=== PATIENT | female | born 1980 | race Caucasian/White ===

== ENCOUNTER 2020-07-02 15:31 | Outpatient (REF) | payer MEDICAID, SELFPAY ==
--- NOTE | ~2020-07-02 | XR_ITS ---
EXAMINATION: XR KNEE, RIGHT CLINICAL INFORMATION: Right knee pain. COMPARISON: None TECHNIQUE: Four views of the right knee. FINDINGS: Mild lateral patellofemoral joint space narrowing is seen. There is no acute fracture, dislocation or joint effusion. The soft tissues are unremarkable. XR/XR knee RT 4V IMPRESSION: Mild lateral patellofemoral degenerative narrowing without acute abnormality.
== END 2020-07-02 15:32 | disposition home or self-care (01) ==
LOC: HO.XRAY 15:31
PROVIDERS: PCP Family Medicine; Visit Provider Family Medicine
DX: M25.561 Pain in right knee (principal)
CPT/HCPCS: 73564

== ENCOUNTER 2020-10-15 09:52 | Outpatient (REF) | payer MEDICAID, SELFPAY ==
[2020-10-15 11:02] LABS: MANUAL DIFF FLAG NO
[2020-10-15 11:17] LABS: Basophils Percent Auto 0.2 % (0-2); Eosinophils Absolute Auto 0.2 X10*3/uL (0.0-0.4); Eosinophils Percent Auto 1.7 % (0-4); Hematocrit 40.1 % (37-47); Imm Gran Abs Auto 0.03 X10*3/uL (0.00-0.03); Imm Gran Pct Auto 0.3 % (0.0-0.4); Lymphocytes Absolute Auto 3.1 X10*3/uL (1.2-4.9); Lymphocytes Percent Auto 34.3 % (20-40); Mean Corpuscular HGB Conc 32.4 g/dl (31.0-35.0); Mean Corpuscular Hemoglobin 27.4 pg (27.0-33.0); Mean Corpuscular Volume 84.6 fL (80-98); Mean Platelet Volume 9.8 fL (9.4-12.3); Monocytes Absolute Auto 0.5 X10*3/uL (0.1-1.2); Monocytes Percent Auto 5.7 % (2-11); Neutrophils Absolute Auto 5.3 X10*3/uL (2.0-8.3); Neutrophils Percent Auto 57.8 % (45-73); Platelet Count 424 X10*3/uL (160-400); Red Blood Count 4.74 X10*6/uL (4.20-5.50); Red Cell Distribution Width 13.7 % (11.0-16.0); White Blood Count 9.2 X10*3/uL (4.8-10.8)
[2020-10-15 11:25] LABS: Estimated Average Glucose 108 mg/dL; Hemoglobin A1c % 5.4 %
[2020-10-15 11:27] LABS: Alanine Aminotransferase 13 U/L (0-31); Albumin Level 4.5 g/dL (3.5-5.0); Alkaline Phosphatase 111 U/L (39-117); Anion Gap 11 (12-20); Aspartate Amino Transferase 18 U/L (5-31); Bilirubin Direct 0.4 mg/dL (0.0-0.5); Blood Urea Nitrogen 11 mg/dL (9-16); Calcium 9.5 mg/dL (8.4-10.2); Carbon Dioxide 23 mmol/L (22-29); Chloride 108 mmol/L (96-108); Cholesterol 168 mg/dL; Estimated Glomerular Filt Rate > 60; Glucose Random 104 mg/dL (60-115); HDL Cholesterol 37 mg/dL; LDL Cholesterol Calculated 116 mg/dl; Potassium 4.3 mmol/L (3.3-5.1); Sodium 138 mmol/L (135-145); Total Protein 8.2 g/dL (6.5-8.0); Triglycerides 75 mg/dL
[2020-10-15 11:41] LABS: Creatinine Urine 214.05 mg/dL; Microalbum/Creatinine Ratio Ur 18.6 ug/mg cr
[2020-10-15 11:50] LABS: Thyroid Stimulating Hormone 0.77 uIU/mL (0.32-4.0); Vitamin D 25-OH Total 20.4 ng/mL (>30)
== END 2020-10-15 09:53 | disposition home or self-care (01) ==
LOC: HO.LAB 09:52
PROVIDERS: PCP Family Medicine; Visit Provider Family Medicine
DX: I10 Essential (primary) hypertension (principal)
CPT/HCPCS: 36415; 80048; 80061; 80076; 82043; 82306; 83036; 84439; 84443; 85025

== ENCOUNTER 2021-06-21 08:40 | Outpatient (REF) | payer MEDICAID, SELFPAY ==
--- NOTE | ~2021-06-21 | MM_ITS ---
EXAMINATION: MM SCREENING DIGITAL BREAST TOMOSYNTHESIS, BILATERAL CLINICAL INFORMATION: Screening. Asymptomatic. No prior breast imaging. Age 40. No known family history breast cancer. The lifetime risk of breast cancer based on the Tyrer-Cuzick Model is 13%. COMPARISON: None (current study represents initial baseline exam). TECHNIQUE: Digital breast tomosynthesis is performed in both the craniocaudal and mediolateral oblique views along with computer-aided detection (CAD). Synthesized 2D images are generated from the tomosynthesis. Additional bilateral MLO views are provided. FINDINGS: There are scattered areas of fibroglandular density (ACR BI-RADS breast composition Category b). There is no significant mass or architectural abnormality. There are bilateral dermal calcifications versus deodorant artifact overlying the bilateral upper axilla, localized to the skin on tomography. The right breast shows no abnormal calcifications. The left breast has some loosely grouped calcifications anterior medial breast on CC view, lesser in number on MLO view. Patient will be recalled for additional magnification views on the left. MM/MM tomosynthesis screening BI IMPRESSION: 1. Left: Loosely grouped calcifications anterior medial breast. 2. Right: No mammographic evidence of malignancy. ASSESSMENT: BI-RADS 0: Incomplete - Need Additional Imaging Evaluation RECOMMENDATION: 1. Additional views of the left breast (magnification CC, magnification LM). 2. Radiology department staff will contact the patient for additional imaging. This patient's information was entered into a reminder system with a target due date for their next mammogram.
== END 2021-06-21 08:41 | disposition home or self-care (01) ==
LOC: HO.MAMMO 08:40
PROVIDERS: PCP Family Medicine; Visit Provider Family Medicine
DX: Z12.31 Encounter for screening mammogram for malignant neoplasm of breast (principal)
CPT/HCPCS: 77063; 77067

== ENCOUNTER 2021-08-12 10:51 | Outpatient (REF) | payer MEDICAID, SELFPAY ==
--- NOTE | ~2021-08-12 | MM_ITS ---
EXAMINATION: MM DIAGNOSTIC DIGITAL MAMMOGRAPHY, LEFT CLINICAL INFORMATION: Recall from baseline screening for calcifications anterior medial left breast. COMPARISON: Mammography: 06/21/2021 (baseline, BI-RADS 0). TECHNIQUE: Digital mammography is performed in the following views: Left magnification CC, left magnification LM x2. FINDINGS: There are scattered areas of fibroglandular density (ACR BI-RADS breast composition Category b). The additional views demonstrate grouped heterogeneous calcifications anterior medial periareolar left breast. The calcifications vary in size. There are 2 groups on the MLO view, 0.6 cm apart. Chronicity is uncertain. There are no grouped calcifications seen on the contralateral right breast. Results are discussed with the patient at time of visit. Stereotactic sampling is recommended. If patient declines sampling, then certainly short interval diagnostic left mammography to include magnification views in 6 months should be obtained. MM/MM added views LT IMPRESSION: Grouped heterogeneous calcifications periareolar medial left breast, initially noted at baseline exam. Chronicity unknown. ASSESSMENT: BI-RADS 4: Suspicious RECOMMENDATION: Stereotactic sampling of the left breast calcifications is suggested. (If patient declines tissue sampling, then short interval follow-up left mammography in 6 months should be performed). [facility]igator to call PCP. This patient's information was entered into a reminder system with a target due date for their next mammogram.
== END 2021-08-12 10:52 | disposition home or self-care (01) ==
LOC: HO.MAMMO 10:51
PROVIDERS: Visit Provider Family Medicine
DX: R92.1 Mammographic calcification found on diagnostic imaging of breast (principal)
CPT/HCPCS: 77065

== ENCOUNTER → 2021-09-23 15:30 | Outpatient (BNVA) | payer MEDICAID, SELFPAY | PROVIDERS: PCP Family Medicine; Visit Provider Surgery | DX: R92.8 Other abnormal and inconclusive findings on diagnostic imaging of breast (principal) | CPT/HCPCS: 99202 ==

== ENCOUNTER 2021-10-13 09:44 | Outpatient (REF) | payer MEDICAID, SELFPAY ==
--- NOTE | ~2021-10-13 | MM_ITS ---
EXAMINATION: STEREOTACTIC TOMOSYNTHESIS-GUIDED VACUUM-ASSISTED BREAST BIOPSY, LEFT SPECIMEN RADIOGRAPH, LEFT POST PROCEDURE DIGITAL MAMMOGRAM, LEFT CLINICAL INFORMATION: Medial periareolar calcifications left breast noted at baseline exam. Age 41. TC score 13%. No known family history breast cancer. COMPARISON: Mammography 08/12/2021, 06/21/2021 (baseline, BI-RADS 0). TECHNIQUE/PROCEDURE: Procedure discussed with patient and her mother. Informed consent was obtained from the patient after discussion of the benefits, risks, and alternatives to biopsy today. Patient appeared to understand. Gave opportunity for questions. Patient signed consent form. BIOPSY TABLE: [employer] Biopsy System. LESION: Calcifications medial periareolar breast. LOCAL ANESTHESIA: 10 mL carbonated 1% lidocaine; 10 mL 1% lidocaine with epinephrine. DERMATOTOMY: Single skin dilcia dermatotomy performed. NEEDLE: [employer] 9-gauge vacuum assisted core biopsy device. APPROACH: medial lateral. TARGETING: Combination of digital breast tomosynthesis and stereotactic digital mammography used for targeting. CORES: 8. CLIP: [employer] T-shaped marker. SPECIMEN RADIOGRAPH: Specimen radiograph is taken in separate room using digital mammography. The index calcifications are in the excised cores. There are at least 15 calcifications in the cores. POST PROCEDURE UNILATERAL DIGITAL MAMMOGRAM: The post biopsy mammogram is performed in separate room using separate digital mammography equipment from the biopsy procedure. CC and LM views are obtained. There are scattered areas of fibroglandular density (breast composition category: b). The clip marker is in position. The calcifications are markedly decreased at the biopsy site. No gross hematoma. The patient tolerated the procedure well. No immediate complications. Home instructions reviewed with the patient and her mother. Final pathology results are pending. MM/MM stereotactic biopsy LT IMPRESSION: 1. Digital tomosynthesis-guided core biopsy left breast with clip placement. 2. Specimen radiograph taken and post procedure mammogram. There is satisfactory positioning of the biopsy clip. 3. Final pathology results pending. An addendum report will be issued.
[2021-10-13] MEDS: Lidocaine HCl 1 % 20 ML VIAL 10 ML SUBCUT (16:30)
[2021-10-13] MEDS: Sodium Bicarbonate 8.4% 50 MEQ/50 ML VIAL SUBCUT (16:32)
== END 2021-10-13 09:45 | disposition home or self-care (01) ==
LOC: HO.MAMMO 09:44
PROVIDERS: PCP Family Medicine; Visit Provider Surgery
DX: R92.8 Other abnormal and inconclusive findings on diagnostic imaging of breast (principal)
CPT/HCPCS: 19081; 88305; 88342; 88360; A4648

== ENCOUNTER → 2021-10-21 15:30 | Outpatient (BNVA) | payer MEDICAID, SELFPAY | PROVIDERS: PCP Family Medicine; Visit Provider Surgery | DX: C50.912 Malignant neoplasm of unspecified site of left female breast (principal); Z17.0 Estrogen receptor positive status [ER+] | CPT/HCPCS: 99212 ==

== ENCOUNTER 2021-10-24 18:53 | Emergency (ER) | payer MEDICAID, SELFPAY ==
--- NOTE | ~2021-10-24 | XR_ITS ---
EXAMINATION: XR CHEST CLINICAL INFORMATION: Cough COMPARISON: None TECHNIQUE: Frontal view of the chest was obtained. FINDINGS: The lungs are clear. No airspace consolidation, pleural effusion, or pneumothorax. The cardiomediastinal silhouette is within normal limits. No acute osseous injury. XR/XR chest 1V IMPRESSION: No acute pulmonary process identified.
[2021-10-24 19:05] VITALS: BP 147/90; PULSE 123; RESP 18; TEMP 37.9; O2SAT 98; BMI 31.8
[2021-10-24] MEDS: Acetaminophen 325 MG TABLET 650 MG PO (19:28)
[2021-10-24 19:53] LABS: COVID-19 Test Negative (Negative); IDNOW Serial# 55D5AD1C
[2021-10-24 19:58] LABS: Lactic Acid 0.9 mmol/L (0.5-2.0)
[2021-10-24 19:59] LABS: Anion Gap 14 (12-20); Blood Urea Nitrogen 11 mg/dL (9-16); Calcium 8.9 mg/dL (8.4-10.2); Carbon Dioxide 20 mmol/L (22-29); Chloride 104 mmol/L (96-108); Creatinine Clr Calc Pharmacy 97.5; Estimated Glomerular Filt Rate > 60; Glucose Random 117 mg/dL (60-115); Potassium 3.8 mmol/L (3.3-5.1); Sodium 134 mmol/L (135-145)
[2021-10-24 20:07] LABS: IDNOW Serial# 9DB6401D
[2021-10-24 20:08] LABS: Influenza A Negative (Negative); Influenza B2 Negative (Negative)
--- NOTE | 2021-10-24 21:41 | ED_ITS ---
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 ) Onset (ago): day(s) (1) Context: other (denies any known exposure and any other symptoms other than fever) Exacerbating factors: nothing Relieving factors: acetaminophen and ibuprofen Associated symptoms: denies other symptoms Treatments prior to arrival fever: none Related Data Home Medications Medication Instructions Recorded Confirmed cholecalciferol (vitamin D3) 50 50 mcg PO DAILY 09/23/21 10/22/21 mcg (2,000 unit) capsule fluticasone propionate 50 2 spray intranasal DAILY 09/23/21 10/22/21 mcg/actuation nasal spray,suspension lisinopril 5 mg tablet 5 mg PO DAILY 09/23/21 10/22/21 loratadine 10 mg tablet 10 mg PO DAILY 09/23/21 10/22/21 Previous Rx's Medication Instructions Recorded amoxicillin 500 mg tablet 500 mg PO BID 10 days #20 tabs 10/24/21 fluconazole 150 mg tablet 150 mg PO Q3D 2 doses #2 tabs 10/24/21 (Diflucan) Allergies Allergy/AdvReac Type Severity Reaction Status Date / Time No Known Allergies Allergy Verified 10/21/21 15:41 Review of Systems Review of Systems: Constitutional : No Weight loss, pos Fever, No Chills, No Fatigue, No Malaise ENT/Mouth : No sore throat, No Rhinorrhea Eyes: No Eye Pain, No Swelling, No Redness Cardiovascular : No Chest Pain, No SOB, No Dyspnea on Exertion, No Orthopnea, No Edema, No Palpitations Respiratory : No Cough, No Sputum, No Wheezing Gastrointestinal : No Nausea, No Vomiting, No Diarrhea, No Constipation, No abdominal Pain, No Hematochezia, No Melena Genitourinary : No Dysuria, No Urinary Frequency, No Hematuria, Musculoskeletal : No joint pain, No Myalgias, No Joint Swelling Skin : No Skin Lesions, No rash Neuro : No Weakness, No Numbness, No Dizziness, No Headache Psych : No Anxiety/Panic, No Depression Heme/Lymph: No Bruising, No Bleeding,No Lymphadenopathy, no insect bites Endocrine : No Polyuria, No Polydipsia All other systems reviewed and are negative [facility] Past Medical History Attestation statement: The following information was validated with the patient. 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 Oriented X3. No acute distress. Eyes: Pupils equal, round and reactive to light. ENT: Pharynx mild erythema with white patches noted on both tonsils. Neck: Normal inspection. Neck supple. no meningeal signs CVS: Normal heart rate and rhythm. Pulses normal. Chest: L breast biopsy site c/d/i no signs of infection Respiratory: No respiratory distress. Breath sounds normal. Abdomen: Soft and nontender. Skin: Skin warm and dry. Normal skin color. Normal skin turgor. Extremities: No lower extremity edema. No calf ttp Neuro: Oriented X 3. No motor deficit. No sensory deficit. MDM - Fever MDM Narrative Medical decision making narrative: 41 yo female with no recent abnormal mammogram L breast showing ductal carcinoma in situ plan for surgery 11/05 comes with just fever x 1 day she denies hx of t ravel, no sick contacts, UTD on vaccines, denies pain/rashes, URI symptoms, /GI symptoms. At this time will obtain COVID/flu, strep given the appearance of her throat with erythema and white patches - highest on differential, CXR, UA, basic labs, dispo per results and findings. Lab Data Result diagrams: 10/24/21 19:21 10/24/21 19:21 Labs: Lab Results 10/24/21 10/24/21 10/24/21 Range/Units 19:21 19:21 19:21 Sodium 134 L (135-145) mmol/L Potassium 3.8 (3.3-5.1) mmol/L Chloride 104 (96-108) mmol/L Carbon Dioxide 20 L (22-29) mmol/L Anion Gap 14 (12-20) BUN 11 (9-16) mg/dL Creatinine 0.76 (0.5-1.4) mg/dL Estim Creat Clear Calc 97.5 Estimated GFR > 60 Random Glucose 117 H (60-115) mg/dL Lactic Acid (0.5-2.0) mmol/L Calcium 8.9 D (8.4-10.2) mg/dL Total Bilirubin 0.7 (0.0-1.0) mg/dL Direct Bilirubin 0.3 (0.0-0.5) mg/dL AST 34 H D (5-31) U/L ALT 24 (0-31) U/L Alkaline Phosphatase 117 (39-117) U/L Total Protein 8.3 H (6.5-8.0) g/dL Albumin 4.3 (3.5-5.0) g/dL COVID-19 (MARBIN) Negative (Negative) COVID-19 Clin Com See Note Influenza Type A (CHRISTY) Negative (Negative) Influenza Type B (CHRISTY) Negative (Negative) Influenza A & B Note See Note S. pyogenes GrpA CHRISTY (Negative) 10/24/21 10/24/21 Range/Units 19:29 21:41 Sodium (135-145) mmol/L Potassium (3.3-5.1) mmol/L Chloride (96-108) mmol/L Carbon Dioxide (22-29) mmol/L Anion Gap (12-20) BUN (9-16) mg/dL Creatinine (0.5-1.4) mg/dL Estim Creat Clear Calc Estimated GFR Random Glucose (60-115) mg/dL Lactic Acid 0.9 (0.5-2.0) mmol/L Calcium (8.4-10.2) mg/dL Total Bilirubin (0.0-1.0) mg/dL Direct Bilirubin (0.0-0.5) mg/dL AST (5-31) U/L ALT (0-31) U/L Alkaline Phosphatase (39-117) U/L Total Protein (6.5-8.0) g/dL Albumin (3.5-5.0) g/dL COVID-19 (MARBIN) (Negative) COVID-19 Clin Com Influenza Type A (CHRISTY) (Negative) Influenza Type B (CHRISTY) (Negative) Influenza A & B Note S. pyogenes GrpA CHRISTY Positive A (Negative) Discharge Plan Discharge Clinical Impression: Acute streptococcal pharyngitis Fever Qualifiers: Fever type: unspecified Qualified Code(s): R50.9 - Fever, unspecified Patient Disposition: Home, Self-Care Instructions: Strep Throat (ED), Fever in Adults (ED) Additional Instructions: return to ED for any worsening symptoms or concerns finish all antibiotics use diflucan if you develop yeast infection after antibiotics Prescriptions: New amoxicillin 500 mg tablet 500 mg PO BID 10 Days Qty: 20 0RF fluconazole [Diflucan] 150 mg tablet 150 mg PO Q3D Qty: 2 0RF Rx Instructions: may repeat second dose 72 hrs after first dose if symptoms persist No Action loratadine 10 mg tablet 10 mg PO DAILY lisinopril 5 mg tablet 5 mg PO DAILY cholecalciferol (vitamin D3) 50 mcg (2,000 unit) capsule 50 mcg PO DAILY fluticasone propionate 50 mcg/actuation spray,suspension 2 spray intranasal DAILY
[2021-10-24 21:55] LABS: Alanine Aminotransferase 24 U/L (0-31); Albumin Level 4.3 g/dL (3.5-5.0); Alkaline Phosphatase 117 U/L (39-117); Aspartate Amino Transferase 34 U/L (5-31); Bilirubin Direct 0.3 mg/dL (0.0-0.5); Bilirubin Total 0.7 mg/dL (0.0-1.0); Total Protein 8.3 g/dL (6.5-8.0)
[2021-10-24 21:57] LABS: Strep A Nucleic Acid Positive (Negative)
[2021-10-24 22:08] VITALS: BP 120/76; PULSE 99; RESP 16; TEMP 37.1; O2SAT 98
[2021-10-24] MEDS: Amoxicillin 500 MG CAPSULE PO (22:31)
[2021-10-24] MEDS: Ibuprofen 600 MG TABLET PO (22:31)
== END 2021-10-24 22:35 | disposition home or self-care (01) ==
PROVIDERS: Emergency Provider Emergency Medicine; PCP Family Medicine
DX: J02.0 Streptococcal pharyngitis (principal); R50.9 Fever, unspecified; Z20.822 Contact with and (suspected) exposure to COVID-19; Z79.899 Other long term (current) drug therapy
CPT/HCPCS: 36415; 71045; 80048; 80076; 83605; 87040; 87502; 87635; 87651; 99283

== ENCOUNTER 2021-11-05 06:39 | Day surgery (SDC) | payer MEDICAID, SELFPAY ==
--- NOTE | 2021-11-04 09:42 | HO.ANESPROP2 ---
Documented by User: Nidia Schreiber NP 11/04/21 09:44 HPI - Anesthesia Eval Consult details Narrative: 41yo F for Left Breast Lumpectomy/Needle Loc, [place] Node Biopsy PMFSH Active Problems Active Problems: All Active Problems (Updated 10/25/21 @ 00:03 by Teressa Peterson) Ductal carcinoma in situ of left breast (Acute) Invasive ductal carcinoma of left breast (Acute) Abnormal mammogram of left breast (Acute) Past Medical History Medical History Anxiety Ductal carcinoma in situ of left breast Invasive ductal carcinoma of left breast Family History Family History Paternal Uncle Throat cancer Social History Social History Alcohol intake: never Patient Tobacco Use Status: Never used Tobacco Are you DNR?: No Advance Directives: No Advance Directives Information Provided: Yes Recently lost weight without trying: No Nutrition Risks: No Nutritional Risk Patient : No Meds Allergies Allergy/AdvReac Type Severity Reaction Status Date / Time No Known Allergies Allergy Verified 10/21/21 15:41 Home Medications Medication Instructions Recorded Confirmed Last Taken Type cholecalciferol (vitamin D3) 50 50 mcg PO DAILY 09/23/21 10/22/21 Unknown History mcg (2,000 unit) capsule fluticasone propionate 50 2 spray intranasal DAILY 09/23/21 10/22/21 Unknown History mcg/actuation nasal spray,suspension lisinopril 5 mg tablet 5 mg PO DAILY 09/23/21 10/22/21 Unknown History loratadine 10 mg tablet 10 mg PO DAILY 09/23/21 10/22/21 Unknown History Exam Exam Date and Time: November 04, 2021 0942 Pertinent Lab Results Pertinent Lab Results: Laboratory Tests 10/15/20 10/24/21 10:16 19:21 WBC 9.2 Hgb 13.0 Hct 40.1 Plt Count 424 H Sodium 134 L Potassium 3.8 Chloride 104 Carbon Dioxide 20 L BUN 11 Creatinine 0.76 Assessment and Plan Assessment Anesthesia Assessment: Chart Reviewed Documented by User: Chely Irizarry MD 11/05/21 11:12 [facility] Past Medical History Medical History Anxiety Ductal carcinoma in situ of left breast Invasive ductal carcinoma of left breast Functional capacity: independent ambulation Patient : No Family History Family History Paternal Uncle Throat cancer Family history of problems with anesthesia: No Surgical History History of Problems with Anesthesia: No Social History Social History Alcohol intake: never Patient Tobacco Use Status: Never used Tobacco Are you DNR?: No Advance Directives: No Advance Directives Information Provided: Yes Recently lost weight without trying: No Nutrition Risks: No Nutritional Risk Patient : No Meds Allergies Allergy/AdvReac Type Severity Reaction Status Date / Time No Known Allergies Allergy Verified 10/21/21 15:41 Home Medications Medication Instructions Recorded Confirmed Last Taken Type cholecalciferol (vitamin D3) 50 50 mcg PO DAILY 09/23/21 10/22/21 Unknown History mcg (2,000 unit) capsule fluticasone propionate 50 2 spray intranasal DAILY 09/23/21 10/22/21 Unknown History mcg/actuation nasal spray,suspension lisinopril 5 mg tablet 5 mg PO DAILY 09/23/21 10/22/21 Unknown History loratadine 10 mg tablet 10 mg PO DAILY 09/23/21 10/22/21 Unknown History Exam Airway Mallampati Class: III TM Dist: >3cm Neck ROM: Full Heart: RRR Lungs: CTA Assessment and Plan Final Anesthetic Review Family History of Problems with Anesthesia: No History of Problems with Anesthesia: No ASA Class: II Final Preanesthetic Review: No Changes in Pt Med Stat, Meds/Allgs Chart Reviewed, Consent Obtained/Reviewed and Anes Risks/Benef Reviewed Patient Risk: Low Procedure Risk: Low Anesthetic Plan Anesthetic Plan: GA Disposition: Standard PACU
[2021-11-05] VITALS (8 sets, daily range): BP systolic 118–141; BP diastolic 67–91; PULSE 88–97; RESP 16–18; TEMP 36.1–36.6; O2SAT 94–98; BMI 31.8
--- NOTE | ~2021-11-05 | MM_ITS ---
EXAMINATION: MM MAMMOGRAM GUIDED NEEDLE LOCALIZATION BREAST, LEFT MM NEEDLE LOCALIZATION SPECIMEN FROM THE LEFT BREAST CLINICAL INFORMATION: Recent diagnosis invasive ductal cancer and DCIS anterior left breast. COMPARISON: Stereotactic biopsy 10/13/2021, mammography 08/12/2021, baseline mammography 06/21/2021. TECHNIQUE NEEDLE LOC: Proper informed consent is obtained from the patient after discussion of the procedure, potential risks and complications, and alternatives including declining the procedure today. Patient was given an opportunity for questions. The patient appeared to understand. The patient consented to the procedure and signed the consent form. GUIDANCE: Digital mammography. APPROACH: Medial Lateral. TARGET: T shaped biopsy clip marker and adjacent fine calcifications. ANESTHESIA: Carbonated lidocaine 1%: 5 mL. LOCALIZATION MARKER: [place] [employer]. 5 cm length. The skin is prepped and local anesthesia administered. The needle is positioned and position assessed with mammography. The wire is hooked into position. [place] needle protector placed. The patient tolerated the procedure well and had no immediate complication. Following the procedure, 4% lidocaine ointment was administered to the left areola and covered with Tegaderm in anticipation of nuclear lymphoscintigraphy injection for sentinel lymph node mapping. Procedure findings communicated to Dr. Gandhi via secure text following procedure. TECHNIQUE SPECIMEN RADIOGRAPH: Imaging of the excised specimen is performed using digital mammography in 1 view. FINDINGS SPECIMEN RADIOGRAPH: The specimen shows the distal needle and distal hookwire are delivered intact. The biopsy clip marker and index calcifications are identified in the specimen. Results were called to Dr. Brian Gandhi in the operating room at the time of imaging. MM/MM needle loc LT IMPRESSION: 1. Status post left breast needle localization with wire hooked into position. 2. Post operative specimen radiograph obtained.
--- NOTE | ~2021-11-05 | NM_ITS ---
EXAMINATION: NM LYMPH SCINTIGRAPHY CLINICAL INFORMATION: Invasive ductal carcinoma of the left breast. COMPARISON: None TECHNIQUE: Following explaining left breast lymphoscintigraphy procedure, benefits and risk by Dr. Loza a written consent was obtained. 4% lidocaine cream was applied around the left breast areola 30 minutes prior to the sentinel node exam. The cream was then cleaned in a usual aseptic manner around the areola. 0.5 uCi of 99M technetium tilmanocept divided in 4 equal doses as 01.125 mci, was injected subcutaneously in 4 quadrants around the areola without immediate complications. Imaging was obtained approximately greater than 30 minutes. There are no complaints by patient. FINDINGS: On left breast imaging, there is isotope activity in 4 quadrants around the areola. There are 2 sentinel nodes seen in the left anterior axilla. No additional lymph nodes seen in the chest or the mediastinum. NM/NM sentinel node w imaging IMPRESSION: 2 small sentinel nodes seen in the left anterior axilla on left breast lymphoscintigraphy.
[2021-11-05 07:15] LABS: Urine Pregnancy NEGATIVE (NEGATIVE)
[2021-11-05 07:16] LABS: UPreg QC Valid YES
[2021-11-05] MEDS: Lactated Ringers 1,000 ML 100 ML IVCONT (07:23)
[2021-11-05] MEDS: Lidocaine HCl 1 % 20 ML VIAL 5 ML SUBCUT (08:59)
[2021-11-05] MEDS: Sodium Bicarbonate 8.4% 50 MEQ/50 ML VIAL SUBCUT (09:00)
--- NOTE | 2021-11-05 14:43 | W.PM.OPN ---
Operative Note Operative Note Date of Service: 11/05/21 Narrative: Preoperative diagnosis: invasive ductal carcinoma left breast Postoperative diagnosis: same Procedure: left breast lumpectomy with needle localization, left sentinel node biopsy Surgeon: Brian Gandhi MD Supervisor Grounds: no physician Anesthesia: general LMA Indications for procedure: 41-year-old female patient with a recent cluster of microcalcifications noted on mammogram found to have invasive ductal carcinoma stereotactic biopsy. She presents today for lumpectomy with sentinel node biopsy. Operative findings: Marking clip within the specimen. Specimen: Left breast lumpectomy, sentinel nodes 1 , 2, and 3, axillary nodes 1 and 2, wider excision medial inferior margin Estimated blood loss: 20 mL Complications: none Procedure details: patient was brought to the OR placed in a supine position. After administering general anesthesia patient's left breast with prepped with ChloraPrep and draped in a sterile fashion. A surgical time-out was called the consent confirmed. Patient received preoperative antibiotics and Venodyne boots were in place. Local anesthesia consisting of 0.5% Sensorcaine was infiltrated around the nipple near the localizing needle. Curvilinear incision was then made around the nipple in the medial surface carried out through subcutaneous tissue. Medial and lateral skin flaps were then created. A core of tissue surrounding the localizing needle was then obtained. This was sent to Radiology for specimen x-ray and pathology for further examination. Attention was then directed to the axilla. Using the gamma probe area of increased activity was identified in the mid axilla. A curvilinear incision was made at the lower axilla and carried out through subcutaneous tissue. Incision was carried down through the clavipectoral fascia. Again using the gamma probe the area of increased activity was noted in the superficial axilla. I would node was identified which was small and contained approximately 910 counts and was sent as sentinel node 1. Two additional nodes were identified with activity. These were sent as sentinel node 2 and 3. Two additional palpable nodes were identified and sent separately as axillary nodes 1 and 2. The wounds were checked for hemostasis using electrocautery. Clavipectoral fascia was then reapproximated using interrupted 3-0 Polysorb sutures. Dermis was reapproximated using interrupted 3-0 Polysorb sutures. Skin was closed using a running subcuticular 4-0 Polysorb suture. After receiving report from pathology an additional margin of the inferior margin and medial margin was obtained. This was sent as a separate specimen. After assuring adequate hemostasis the wounds were irrigated with saline and suctioned dry. Deep breast tissue was then reapproximated using interrupted 3-0 Polysorb sutures. Superficial breast tissue was reapproximated using interrupted 3-0 Polysorb sutures. Dermis was reapproximated using interrupted 3-0 Polysorb sutures. Skin was then closed using a running subcuticular 4-0 Polysorb suture Steri-Strips, 2 x 2 gauze and Tegaderm were applied. The patient tolerated the procedure well. Sponge, instrument, and needle counts reported as correct. Patient was transferred to PACU in stable condition.
[2021-11-05] MEDS: Acetaminophen 325 MG TABLET 650 MG PO (15:49)
== END 2021-11-05 15:58 | disposition home or self-care (01) ==
PROVIDERS: Nurse Practitioner; PCP Family Medicine; Visit Provider Surgery
PROC: (CPT 19301; principal; 2021-11-05 11:00)
PROC: (CPT 19301; 2021-11-05 11:00)
DX: C50.912 Malignant neoplasm of unspecified site of left female breast (principal); C77.3 Secondary and unspecified malignant neoplasm of axilla and upper limb lymph nodes; Z17.0 Estrogen receptor positive status [ER+]
CPT/HCPCS: 19301; 38525; 19281; 78195; 81025; 88305; 88307; 88329; 88342; A4648; A9520; J0690; J1100; J1885; J2250; J2405; J2795; J3010

== ENCOUNTER → 2021-12-01 13:00 | Outpatient (BNV) | payer MEDICAID, SELFPAY | PROVIDERS: PCP Family Medicine; Referring Provider Surgery; Visit Provider Internal Medicine | DX: D05.12 Intraductal carcinoma in situ of left breast (principal) | CPT/HCPCS: 99205; 99212; 99213; 99214; 99215 ==

== ENCOUNTER 2021-12-17 05:48 | Day surgery (SDC) | payer MEDICAID, SELFPAY ==
[2021-12-17 06:09] VITALS: BP 121/75; PULSE 98; RESP 19; TEMP 36.1; O2SAT 99
[2021-12-17 06:23] VITALS: BMI 30.9
[2021-12-17 06:25] LABS: UPreg QC Valid YES
[2021-12-17 06:26] LABS: Urine Pregnancy NEGATIVE (NEGATIVE)
[2021-12-17] MEDS: Lactated Ringers 1,000 ML 100 ML IVCONT (06:33)
--- NOTE | 2021-12-17 07:23 | HO.ANESPROP2 ---
HPI - Anesthesia Eval Consult details Narrative: 41 F for left breast mass excicion PMFSH Active Problems Active Problems: All Active Problems (Updated 11/28/21 @ 14:39 by Lelo Wu MD) Abnormal mammogram of left breast (Acute) Ductal carcinoma in situ of left breast (Acute) Invasive ductal carcinoma of left breast (Acute) Past Medical History Medical History Anxiety Ductal carcinoma in situ of left breast Invasive ductal carcinoma of left breast Functional capacity: independent ambulation Family History Family History Paternal Uncle Throat cancer Family history of problems with anesthesia: No Surgical History Surgical History (Updated 12/16/21 @ 08:29 by Bing Lynn RN) History of lumpectomy of left breast History of Problems with Anesthesia: No Social History Social History (Updated 11/28/21 @ 14:52 by LENORE Kirk) Household Members: Family Household Members Other:: Mother Housing: House Alcohol intake: never Patient Tobacco Use Status: Never used Tobacco service: No Current occupational status: unemployed Meds Allergies Allergy/AdvReac Type Severity Reaction Status Date / Time No Known Allergies Allergy Verified 12/09/21 15:12 Active Medications: Current Medications Lactated Ringer's (Lr) 1,000 mls @ 100 mls/hr IVCONT .Q10H OLIVA Last Admin: 12/17/21 06:33 Dose: 100 mls/hr Home Medications Medication Instructions Recorded Confirmed Last Taken Type cholecalciferol (vitamin D3) 50 50 mcg PO DAILY 09/23/21 12/17/21 Unknown History mcg (2,000 unit) capsule fluticasone propionate 50 2 spray intranasal DAILY 09/23/21 12/17/21 Unknown History mcg/actuation nasal spray,suspension lisinopril 5 mg tablet 5 mg PO DAILY 09/23/21 12/17/21 12/17/21 History loratadine 10 mg tablet 10 mg PO DAILY 09/23/21 12/17/21 Unknown History Exam Exam Date and Time: December 17, 2021 0723 Height,Weight and Vital Signs: Height 5 ft 4 in Weight 81.647 kg Last Vital Signs Temp 97.0 F 12/17/21 06:09 Pulse 98 12/17/21 06:09 Resp 19 12/17/21 06:09 BP 121/75 12/17/21 06:09 Pulse Ox 99 12/17/21 06:09 O2 Del Method 12/17/21 06:09 Pertinent Lab Results Pertinent Lab Results: Laboratory Tests 12/17/21 06:10 Urine Test NEGATIVE Airway Mallampati Class: IV TM Dist: >3cm Neck ROM: Full Loose/Missing/Broken Teeth: Yes Heart: S1,S2 Lungs: b/l breath sounds Assessment and Plan Assessment Anesthesia Assessment: Anesthesia Plan Discussed and Chart Reviewed Final Anesthetic Review Family History of Problems with Anesthesia: No History of Problems with Anesthesia: No NPO: Yes ASA Class: II Final Preanesthetic Review: Meds/Allgs Chart Reviewed, Consent Obtained/Reviewed and Anes Risks/Benef Reviewed Patient Risk: Intermediate Procedure Risk: Intermediate Anesthetic Plan Anesthetic Plan: GA Disposition: Standard PACU
--- NOTE | 2021-12-17 07:38 | MHC.SHP ---
Pre-Procedural Eval Section A Date of Service: 12/17/21 The patient is an INPATIENT: No Changes since office visit: Yes Patient answered all questions; No Cold of Flu in the past 2 weeks, No New Medical Problems and No Changes in Medication The History & Physical has been completed within 30 days and I have reviewed it.: Yes Section B Chief Complaint: Intraductal carcinoma in situ (L) breast,malignant Allergies: Allergies Allergy/AdvReac Type Severity Reaction Status Date / Time No Known Allergies Allergy Verified 12/09/21 15:12 Plan Diagnosis/Plan: Unchanged I have reviewed the history and physical and performed a pertinent physical examination on my patient. No changes have occurred unless specified.
--- NOTE | 2021-12-17 09:02 | W.PM.OPN ---
Operative Note Operative Note Date of Service: 12/17/21 Narrative: Preoperative diagnosis: Invasive ductal carcinoma left breast Postoperative diagnosis: same Procedure: wide excision invasive ductal carcinoma left breast Surgeon: Brian Gandhi MD Business Support Liaison: ISABEL Johnson Anesthesia: general LMA Indications for procedure: 41-year-old female patient with a recently diagnosed invasive ductal carcinoma left breast. She underwent lumpectomy with needle localization and sentinel node biopsy. Pathology revealed invasive ductal carcinoma grade 2, 2 cm in diameter with DCIS. Tumor extended to the medial and superior margins with invasive tumor, DCIS extended to within microns of the superior and medial margins. On excision of the inferior medial margin, invasive tumor was seen at the deep margin and DCIS at the deep margin and within 1.5 mm of the inferior margin. Two of the 5 lymph nodes were positive for metastatic disease. She returns today for wider excision to achieve negative margins. Operative findings: Inflammation in the left medial breast with a curvilinear incision at the medial margin of the areola. Wide excision performed without entering the previous biopsy cavity. Inflammation noted at the breast tissue just below the nipple. No obvious tumor encountered. Specimen: Wide excision left breast cancer Estimated blood loss: 10 mL Complications: none Procedure details: patient was brought to the OR placed in a supine position. After administering general anesthesia the patient's left breast was prepped with ChloraPrep and draped in a sterile fashion. A surgical time-out was called the consent confirmed. Patient received preoperative antibiotics and Venodyne boots were in place. A curvilinear incision was made in elliptical fashion to include the previous incision. This was carried out through subcutaneous tissue. Combination of sharp dissection electrocautery dissection was then used to dissect a large segment of breast tissue to include the previous biopsy cavity. Hemostasis was achieved at all times using electrocautery. Dissection was continued down to chest wall. The specimen was dissected off the pectoralis muscle and sent to pathology for further examination. Hemostasis was again assured using electrocautery. Wounds were irrigated with saline solution. The specimen was marked with a source short suture at the breast tissue just below the nipple in the anterior specimen. A segment of skin was also part of the anterior specimen. Breast tissue was then mobilized from lateral to medial and deep breast tissue reapproximated over the pectoralis muscle using interrupted 3-0 Polysorb sutures. Dermis was also reapproximated using interrupted 3-0 Polysorb sutures. Skin was closed using a running subcuticular 4-0 Polysorb suture. Steri-Strips and Tegaderm were then applied. The patient tolerated the procedure well. Sponge, instrument, and needle counts reported as correct. Patient was transferred to PACU in stable condition.
[2021-12-17 09:12] VITALS: BP 120/71; PULSE 92; RESP 16; TEMP 36.3; O2SAT 100
[2021-12-17 09:17] VITALS: BP 129/71; PULSE 95; RESP 18; O2SAT 100
[2021-12-17 09:22] VITALS: BP 123/75; PULSE 91; RESP 18; O2SAT 100
[2021-12-17 09:27] VITALS: BP 123/75; PULSE 91; RESP 18; TEMP 36.3; O2SAT 99
[2021-12-17 09:42] VITALS: BP 118/64; PULSE 99; RESP 18; TEMP 36.4; O2SAT 99
== END 2021-12-17 10:16 | disposition home or self-care (01) ==
PROVIDERS: Anesthesiology; PCP Family Medicine; Visit Provider Surgery
PROC: (CPT 19120; principal; 2021-12-17 07:30)
DX: C50.912 Malignant neoplasm of unspecified site of left female breast (principal); F41.1 Generalized anxiety disorder; Z79.51 Long term (current) use of inhaled steroids; Z79.899 Other long term (current) drug therapy; C77.3 Secondary and unspecified malignant neoplasm of axilla and upper limb lymph nodes; Z17.0 Estrogen receptor positive status [ER+]
CPT/HCPCS: 19301; 81025; 88307; 88341; 88342; J0690; J1100; J1885; J2250; J2405; J2795; J3010

== ENCOUNTER 2022-01-19 08:14 | Day surgery (SDC) | payer MEDICAID, SELFPAY ==
--- NOTE | ~2022-01-19 | IR_ITS ---
EXAMINATION: Ultrasound guidance for Port-A-Cath placement. Please see Port-A-Cath insertion report from the same day.
--- NOTE | ~2022-01-19 | IR_ITS ---
PROCEDURE: IR INSERTION OF TUNNEL CATHETER CLINICAL INFORMATION: Breast cancer. COMPARISON: None TECHNIQUE: Procedure and risks and benefits including bleeding, infection and pneumothorax were discussed with the patient and informed consent was obtained. All elements of maximal sterile barrier technique followed including use of cap, mask, sterile gown, sterile gloves, a sterile full body drape and hand hygiene. Also followed skin preparation with 2% chlorhexidine for cutaneous antisepsis, and sterile ultrasound preparation with sterile gel and probe cover when applicable. The right neck and chest were prepped and draped in the usual sterile fashion. The skin and soft tissues of the right lower neck were anesthetized with 1% lidocaine plain. A small incision was made. Using ultrasound guidance and a 5-[place] micropuncture system, right internal jugular vein access was obtained. Over an .018 wire, a 5-[place] dilator was positioned in the SVC. The skin and soft tissues of the right upper anterior chest were anesthetized with 1% lidocaine plain. A small incision was made. Using blunt dissection, a subcutaneous pocket was created. A subcutaneous tunnel from the chest to the neck incision was anesthetized with 1% lidocaine plain. Using a tunneler, a 6.6-[place] single-lumen catheter was tunneled from the chest to the neck incision. The catheter was attached to the port. The port was positioned in the subcutaneous pocket and secured using two 2-0 absorbable sutures. An .035 guidewire was advanced through the 5-[place] dilator into the IVC. The 5-[place] dilator was exchanged for a 7-[place] peel-away sheath. Using bent wire technique, the catheter length was estimated and the catheter was cut. The catheter length is 20 cm. The catheter was fed through the peel-away sheath. The neck incision was closed using a 4-0 absorbable subcuticular suture. The chest incision was closed using four 3-0 absorbable interrupted sutures followed by a running subcuticular 40 absorbable suture. The port was accessed. The port had good blood return, flushed easily and was instilled with heparin 5 mL 500 unit per mL solution. The patient received Versed 2 mg and fentanyl 100 mcg intravenously during the procedure and 2 g of intravenous Kefzol. Total sedation time was 70 minutes. Real-time ultrasound guidance was used to document vein patency and for needle entry. A formal ultrasound picture was recorded. Conscious sedation was provided by a registered nurse under my direct supervision with continuous hemodynamic monitoring. FINDINGS: There is a right internal jugular Port-A-Cath with tip projecting over the cavoatrial junction. IR/IR cvc insert tunnel w prt/music historian IMPRESSION: Right internal jugular 6.6-[place] single-lumen Dignity Port-A-Cath placement.
[2022-01-19 08:52] LABS: MANUAL DIFF FLAG NO
[2022-01-19 09:00] LABS: Basophils Percent Auto 0.2 % (0-2); Eosinophils Absolute Auto 0.3 X10*3/uL (0.0-0.4); Eosinophils Percent Auto 3.9 % (0-4); Hemoglobin 12.9 g/dl (12.0-16.0); Imm Gran Abs Auto 0.03 X10*3/uL (0.00-0.03); Imm Gran Pct Auto 0.3 % (0.0-0.4); Lymphocytes Percent Auto 33.6 % (20-40); Mean Corpuscular HGB Conc 32.3 g/dl (31.0-35.0); Mean Corpuscular Hemoglobin 27.4 pg (27.0-33.0); Mean Corpuscular Volume 85.1 fL (80.0-98.0); Mean Platelet Volume 9.2 fL (9.4-12.3); Monocytes Absolute Auto 0.5 X10*3/uL (0.1-1.2); Neutrophils Absolute Auto 4.9 x10*3/uL (2.0-8.3); Platelet Count 379 X10*3/uL (160-400); Red Cell Distribution Width 13.3 % (11.0-16.0); White Blood Count 8.8 X10*3/uL (4.8-10.8)
[2022-01-19 09:06] VITALS: BMI 30.9
[2022-01-19 09:10] LABS: INTERNATIONAL NORM RATIO 1.1 (0.9-1.1); Prothrombin Time 12.5 SEC (10.0-13.1)
[2022-01-19 09:13] LABS: Partial Thromboplastin Time 35.2 SEC (26.0-36.4)
[2022-01-19 09:14] LABS: Anion Gap 15 (12-20); Blood Urea Nitrogen 12 mg/dL (9-16); Carbon Dioxide 22 mmol/L (22-29); Chloride 107 mmol/L (96-108); Creatinine Clr Calc Pharmacy 95.9; Estimated Glomerular Filt Rate > 60; Potassium 3.9 mmol/L (3.3-5.1); Sodium 140 mmol/L (135-145)
[2022-01-19] MEDS: Heparin Sodium,Porcine Flush 500 UNIT/5 ML SYRINGE IVFLUSH (12:03)
[2022-01-19] MEDS: Lidocaine HCl 2% PF/Epi 1:200 20 ML VIAL INFILTRATI (12:04)
[2022-01-19 12:29] VITALS: BP 109/79; PULSE 94; RESP 12; TEMP 37.4; O2SAT 97
[2022-01-19 12:44] VITALS: BP 114/79; PULSE 101; RESP 12; O2SAT 97
--- NOTE | 2022-01-19 12:50 | HO.RADPN ---
RADIOLOGY Narrative Narrative: RIJ 6.6 fr Dignity port placed. Tip at cavoatrial junction.
[2022-01-19 12:59] VITALS: BP 109/74; PULSE 100; RESP 16; O2SAT 97
[2022-01-19 13:14] VITALS: BP 115/71; PULSE 100; RESP 16; O2SAT 96
[2022-01-19 13:29] VITALS: BP 125/76; PULSE 101; RESP 12; TEMP 37.4; O2SAT 97
== END 2022-01-19 13:40 | disposition home or self-care (01) ==
PROVIDERS: Radiology Diagnostic Radiology; PCP Family Medicine; Visit Provider Internal Medicine
DX: C50.912 Malignant neoplasm of unspecified site of left female breast (principal); F41.1 Generalized anxiety disorder; Z79.899 Other long term (current) drug therapy
CPT/HCPCS: 36415; 36561; 76937; 80051; 82565; 84520; 85025; 85610; 85730; 99152; 99153; C1769; C1788; J0690; J1642; J2250; J3010

== ENCOUNTER → 2022-01-22 07:02 | Outpatient (REF) | payer MEDICAID, SELFPAY ==
--- NOTE | 2022-01-22 07:18 | CA_ITS ---
Transthoracic Echocardiogram Patient (Last, First, Middle): Kiki Muniz, Gender: Female Date of : 1980 Age: 41 Procedure Date: 01/22/2022 Procedure Type: Transthoracic Echocardiogram Location: OP Height: 165.1 cm Weight: 77.11 kg BSA: 1.85 m2 Heart Rate: bpm BP: 124 / 86 mmHg Medical Esthetician: LAURIE Referring MD: Lelo Wu MD Loader Operator/Ground Leader: Justin Jean MD Symptoms: pre chemo eval Study Quality: Technically Difficult ECG Rhythm: Sinus Conclusions: - 1. Technically limited study despite use of contrast agent 2. Normal LV systolic and diastolic function with LVEF of 55-60%. 3. Limited visualization of cardiac valves with trivial aortic regurgitation 4. Normal calculated RV systolic pressure Findings Procedure Information Contrast agent, definity, is being given per protocol without apparent complications. Left Ventricle Normal left ventricular size, thickness, and systolic function. The visually estimated ejection fraction is between 55-60%. Spectral Doppler is indicative of a normal filling pattern. Right Ventricle Normal right ventricular cavity size. Atria The left atrium is normal in size. Interatrial shunt cannot be excluded. The right atrium is normal in size. Aortic Valve The aortic valve was not well visualized. There is no aortic valve stenosis. There is trace (trivial) aortic valve regurgitation. Mitral Valve The mitral valve was not well visualized. There is no mitral valve regurgitation. There is no mitral valve stenosis. Pulmonic Valve The pulmonic valve was not well visualized. Tricuspid Valve The tricuspid valve was not well visualized. The right ventricular systolic pressure is normal. The right ventricular systolic pressure is 9 mmHg. There is no evidence of pulmonary hypertension. Great Vessels The aorta was not well visualized. The pulmonary artery was not well visualized. Venous The inferior vena cava is normal in size and collapses greater than 50% with inspiration. Pericardium/Pleural There is no evidence of pericardial effusion. Prior Study Comparison No prior study available for comparison. Measurements 2D Linear Measurements IVSd: 0.73 0.6-0.9/0.6-1.0 cm LVIDd: 4.56 3.9-5.3/4.2-5.9 cm LVIDd Index: 2.46 2.4-3.2/2.2-3.1 cm/m2 LVIDs: 3.34 2.0-3.6 cm LVPWd: 0.92 0.7-1.1 cm LA Diam: 2.80 2.7-3.8/3.0-4.0 cm LAIDs Index: 1.51 1.5-2.3 cm/m2 LV Mass: 149.49 67-162/88-224 g LV Mass Index: 80.81 43-95/49-115 g/m2 LVOT Diam: 1.90 3.0+(-)1.3 cm 2D Systolic Function EF 4C: 51.30 >55% EF 2C: 61.10 >55% EF BiP: 58.00 >55% Mitral Valve MV Pk E: 0.79 MV PK A: 0.46 MV Decel Time: 173.00 E/A: 1.70 E'Lateral: 12.90 E'Medial: 10.30 E/E' Med: 7.70 E/E' Lat: 6.10 PHT: 51.00 MVA PHT: 4.31 Decel [place]: 4.55 Aortic Valve AoV Pk William: 1.43 AoV Mn William: 1.02 AoV VTI: 0.31 AoV Pk Grad: 8.00 Aov Mn Grad: 5.00 ZAIDA Cont.VTI: 2.38 LVOT LVOT Pk William: 1.27 LVOT Mn William: 0.89 LVOT VTI: 0.26 LVOT Pk Grad: 6.00 LVOT Mn Grad: 4.00 LVOT Diam: 1.90 LVOT Area: 2.84 Diastolic Function MV Pk E: 0.79 MV Pk A: 0.46 E/A: 1.70 E'Medial: 10.30 E/E' Med: 7.70 E' Laterial: 12.90 E/E' Lat: 6.10 Right Ventricle TAPSE (mm): 18.00 TVS' William: 10.30 Tricuspid Valve TR Pk William: 1.22 TR Pk Grad: 6.00 RA Press: 3.00 RVSP: 9.00 Great Vessels Aorta Sinus of Valsalva: 2.65 2.0-3.[address] [place]: 2.47 1.7-3.4 cm Ao Asc: 2.80 2.1-3.4 cm Updated in Other Vendor System with Status of Final Justin Jean MD electronically signed on 01/23/2022 12:40:44 PM with status of Final
[2022-01-22 07:28] LABS: MANUAL DIFF FLAG NO
[2022-01-22 07:57] LABS: Basophils Percent Auto 0.3 % (0-2); Eosinophils Absolute Auto 0.3 X10*3/uL (0.0-0.4); Hematocrit 39.2 % (37.0-47.0); Hemoglobin 12.5 g/dl (12.0-16.0); Imm Gran Abs Auto 0.04 X10*3/uL (0.00-0.03); Imm Gran Pct Auto 0.4 % (0.0-0.4); Lymphocytes Absolute Auto 3.7 X10*3/uL (1.2-4.9); Lymphocytes Percent Auto 34.5 % (20-40); Mean Corpuscular HGB Conc 31.9 g/dl (31.0-35.0); Mean Corpuscular Hemoglobin 27.3 pg (27.0-33.0); Mean Corpuscular Volume 85.6 fL (80.0-98.0); Mean Platelet Volume 9.6 fL (9.4-12.3); Monocytes Absolute Auto 0.6 X10*3/uL (0.1-1.2); Monocytes Percent Auto 5.4 % (2-11); Neutrophils Percent Auto 56.4 % (45-73); Platelet Count 382 X10*3/uL (160-400); Red Blood Count 4.58 X10*6/uL (4.20-5.50); Red Cell Distribution Width 13.4 % (11.0-16.0); White Blood Count 10.7 X10*3/uL (4.8-10.8)
[2022-01-22 08:27] LABS: Alanine Aminotransferase 17 U/L (0-31); Albumin Level 4.3 g/dL (3.5-5.0); Alkaline Phosphatase 112 U/L (39-117); Anion Gap 15 (12-20); Aspartate Amino Transferase 17 U/L (5-31); Bilirubin Total < 0.2 mg/dL (0.0-1.0); Blood Urea Nitrogen 11 mg/dL (9-16); Calcium 9.2 mg/dL (8.4-10.2); Carbon Dioxide 22 mmol/L (22-29); Chloride 104 mmol/L (96-108); Estimated Glomerular Filt Rate > 60; Glucose Random 109 mg/dL (60-115); Potassium 3.4 mmol/L (3.3-5.1); Sodium 138 mmol/L (135-145); Total Protein 8.3 g/dL (6.5-8.0)
[2022-01-22 08:33] LABS: HBS Num1 0.12 mIU/mL (0-7.99); HBc Num1 0.05 S/CO (0.00-0.79); Hepatitis B Core Antibody Nonreactive (Nonreactive); Hepatitis B Surface Antigen Negative (Negative); ~Hepatitis B Surface Antibody NONREACTIVE (Nonreactive)
== END ==
LOC: HO.CARD 07:02
PROVIDERS: PCP Family Medicine; Visit Provider Internal Medicine
DX: Z01.812 Encounter for preprocedural laboratory examination (principal); C50.912 Malignant neoplasm of unspecified site of left female breast
CPT/HCPCS: 36415; 80053; 85025; 86704; 86706; 87340; 93306; Q9957

== ENCOUNTER → 2022-05-05 15:20 | Outpatient (BNVA) | payer MEDICAID, SELFPAY | PROVIDERS: PCP General Practice; Visit Provider Surgery | DX: C50.912 Malignant neoplasm of unspecified site of left female breast (principal); Z17.0 Estrogen receptor positive status [ER+] | CPT/HCPCS: 99212 ==

== ENCOUNTER → 2022-08-14 08:27 | Outpatient (BNVA) | payer MEDICAID, SELFPAY | PROVIDERS: PCP General Practice; Visit Provider Surgery | DX: D05.12 Intraductal carcinoma in situ of left breast (principal) | CPT/HCPCS: 99212 ==

== ENCOUNTER 2022-09-08 14:57 | Outpatient (REF) | payer MEDICAID, SELFPAY ==
--- NOTE | ~2022-09-08 | MM_ITS ---
EXAMINATION: MM DIAGNOSTIC DIGITAL BREAST TOMOSYNTHESIS, BILATERAL CLINICAL INFORMATION: History left breast IDC and DCIS with 1 of 4 nodes showing metastatic carcinoma. Patient is status post lumpectomy 11/05/2021 with subsequent chemotherapy and recent completion of left radiation within past 2 weeks. COMPARISON: Mammography: 11/05/2021, 10/13/2021, 08/12/2021, 06/21/2021 (baseline). TECHNIQUE: Digital breast tomosynthesis is performed in both the craniocaudal and mediolateral oblique views along with computer-aided detection (CAD). Synthesized 2D images are generated from the tomosynthesis. Additional views are obtained: Magnification left CC, magnification left LM, magnification right CC, magnification right ML x2. FINDINGS: There are scattered areas of fibroglandular density (ACR BI-RADS breast composition Category b). Left breast status post therapy changes with scarring and smooth skin thickening. No abnormal calcifications. The axilla is unremarkable. Right breast has parenchymal pattern similar to prior baseline exam with no interval mass or architectural abnormality. The right axilla and skin contours are unremarkable. There are new punctate calcifications central lower right breast since baseline exam 2021. Distribution may be early segmental. Results and management options are discussed with the patient and her mother at time of imaging. If stereotactic sampling of the right breast calcifications is not performed, then short interval six-month follow-up would be recommended. MM/MM tomosynthesis diagnostic BI IMPRESSION: Right: -New loosely arranged punctate calcifications central lower right breast, possibly early segmental. Left: -Post therapy changes. ASSESSMENT: BI-RADS 4: Suspicious (subcategory 4A: Low suspicion for malignancy) RECOMMENDATION: -Consider stereotactic sampling right breast calcifications. If tissue sampling is not performed, then short interval follow-up mammography to include magnification views would be recommended. This patient's information was entered into a reminder system with a target due date for their next mammogram.
== END 2022-09-08 14:58 | disposition home or self-care (01) ==
LOC: HO.MAMMO 14:57
PROVIDERS: PCP General Practice; Visit Provider Surgery
DX: Z85.3 Personal history of malignant neoplasm of breast (principal)
CPT/HCPCS: 77062; 77066

== ENCOUNTER 2022-10-15 09:37 | Outpatient (REF) | payer MEDICAID, SELFPAY ==
--- NOTE | ~2022-10-15 | MM_ITS ---
EXAMINATION: STEREOTACTIC TOMOSYNTHESIS-GUIDED VACUUM-ASSISTED BREAST BIOPSY, RIGHT SPECIMEN RADIOGRAPH, RIGHT POST PROCEDURE DIGITAL MAMMOGRAM, RIGHT CLINICAL INFORMATION: Calcifications right breast. Personal history contralateral left breast IDC and DCIS status post lumpectomy 11/05/2021. COMPARISON: Mammography 09/08/2022, 06/21/2021 (baseline). TECHNIQUE/PROCEDURE: Informed consent was obtained from the patient after discussion of the benefits, risks, and alternatives to biopsy today. Patient appeared to understand. Gave opportunity for questions. Patient signed consent form. BIOPSY TABLE: [employer] Affirm Prone Biopsy System. LESION: Calcifications central lower right breast, possibly early segmental distribution. LOCAL ANESTHESIA: 10 mL carbonated 1% lidocaine; 10 mL 1% lidocaine with epinephrine. DERMATOTOMY: Single skin dilcia dermatotomy performed. NEEDLE: MenoGeniXiva 9-gauge vacuum assisted core biopsy device. APPROACH: Caudal cranial. TARGETING: Combination of digital breast tomosynthesis and stereotactic digital mammography used for targeting. CORES: 8. CLIP: [employer] SecurMark Cylinder-shaped marker. SPECIMEN RADIOGRAPH: Specimen radiograph is taken in separate room using digital mammography. The index calcifications are in the excised cores. There are at least 8 calcifications in the cores. POST PROCEDURE UNILATERAL DIGITAL MAMMOGRAM: The post biopsy mammogram is performed in separate room using separate digital mammography equipment from the biopsy procedure. CC and ML views are obtained. There are scattered areas of fibroglandular density (breast composition category: b). The clip marker is in position. The calcifications are decreased at the biopsy site. No gross hematoma. The patient tolerated the procedure well. No immediate complications. Home instructions reviewed with the patient and her mother. Final pathology results are pending. MM/MM stereotactic biopsy RT IMPRESSION: 1. Digital tomosynthesis-guided core biopsy right breast with clip placement. 2. Specimen radiograph taken and post procedure mammogram. There is satisfactory positioning of the biopsy clip. 3. Final pathology results pending. An addendum report will be issued.
[2022-10-15] MEDS: Lidocaine HCl 1 % 20 ML VIAL 9 ML SUBCUT (11:38)
[2022-10-15] MEDS: Sodium Bicarbonate 8.4% 50 MEQ/50 ML VIAL SUBCUT (11:39)
[2022-10-15] MEDS: Lidocaine HCl 1%/Epi 1:100,000 10 ML VIAL SUBCUT (11:40)
== END 2022-10-15 09:38 | disposition home or self-care (01) ==
LOC: HO.MAMMO 09:37
PROVIDERS: PCP General Practice; Visit Provider Surgery
DX: R92.8 Other abnormal and inconclusive findings on diagnostic imaging of breast (principal)
CPT/HCPCS: 19081; 88305; A4648

== ENCOUNTER → 2022-10-22 12:48 | Outpatient (BNVA) | payer MEDICAID, SELFPAY | PROVIDERS: Visit Provider Surgery | DX: R92.1 Mammographic calcification found on diagnostic imaging of breast (principal); C50.112 Malignant neoplasm of central portion of left female breast; Z17.0 Estrogen receptor positive status [ER+] | CPT/HCPCS: 99212 ==

== ENCOUNTER 2023-02-02 15:20 | Outpatient (AMB) | payer MEDICAID, SELFPAY ==
--- NOTE | 2023-02-02 15:22 | MHC.OFFVIS ---
Intake Vital Signs 02/02/23 15:31 Height 5 ft 4 in Weight 163 lb BMI 28.0 BP 121/78 Blood Pressure Location Rt brachial Position Sitting Pulse 91 Intake Visit Reasons: 3 mth follow up RT breast bx Intake Note: Patient is seen in office for 3 month follow up visit, breast exam. Patient c/o: reports no breast complaints at this time. On Site Wastewater Systems Technician Required: No Accompanied by: Mother Allergies No Known Allergies Allergy (Verified 02/02/23 15:32) Medication List - Last Reconciled 02/02/23 by Brian Gandhi MD cholecalciferol (vitamin D3) 50 mcg PO DAILY fluticasone propionate 50 mcg/actuation 2 sprays intranasal DAILY letrozole 2.5 mg PO DAILY lisinopril 5 mg PO DAILY loratadine 10 mg PO DAILY ondansetron 8 mg PO Q8H PRN HPI HPI Comments History of Present Illness Details 42-year-old female patient diagnosed with invasive ductal carcinoma, grade 2 with ductal carcinoma in situ, ER/AL positive, HER2 Chase negative, Ki-67 expression low. She underwent left breast lumpectomy with needle localization and left sentinel node biopsy on 11/05/2021. Pathology revealed a 2 cm invasive ductal carcinoma with positive inferior and medial margins. DCIS also revealed tumor within microns of the medial and superior margins. Two of 5 sentinel lymph nodes or positive for metastatic carcinoma. After discussion of the pathology results with Dr. Wu, decision was made to proceed to a wider excision which was performed on 11/28/2021. Residual invasive ductal carcinoma was identified with negative margins of 1 mm at the anterior and lateral margin. Residual ductal carcinoma in situ was also found with negative margins to 1 mm at the anterior medial margin. She has subsequently been started on chemotherapy by Dr. Wu. She received AC x4 cycles and is currently receiving Taxol weekly. She has 1 week left to radiation therapy and currently id is undergoing a boost to the tumor site. She is tolerating this very well denies any significant breast pain. She underwent genetic testing which was negative for known mutations of clinical significance. Her last mammogram of 09/08/2022 revealed newly loosely arranged punctate calcifications in the central lower right breast felt to be high suspicion for malignancy. Stereotactic biopsy was recommended. This was performed on 10/15/2022 at the [facility]. Pathology revealed Benign breast tissue with fibrocystic changes, columnar cell changes and calcifications; no atypia or malignancy identified. She tolerated the procedure well returns today for wound check. [facility] Medical History Anxiety Ductal carcinoma in situ of left breast Invasive ductal carcinoma of left breast Surgical History History of lumpectomy of left breast (11/06/21) Family History Paternal Uncle Throat cancer Social History Household Members: Family Household Members Other:: Mother Housing: House Alcohol intake: never Patient Tobacco Use Status: Never used Tobacco service: No Current occupational status: unemployed Female Reproductive History Menstrual Age of Menarche: 11 Review of Systems Const All systems reviewed & are unremarkable except as noted in HPI and below Denies chills, Denies fever(s), Denies headache(s) and Denies poor appetite ENT Denies dizziness and Denies headache(s) Card Denies chest pain, Denies rapid heart rate, Denies palpitations and Denies slow heart rate Resp Denies chest congestion, Denies cough, Denies pain on inspiration and Denies wheezing GI Denies abdominal pain, Denies bloating, Denies change in stool character, Denies constipation, Denies diarrhea, Denies nausea, Denies vomiting and Denies hematemesis Musc Denies back pain, Denies arthralgias, Denies joint swelling and Denies numbness Skin/Breast Denies change in pigmentation, Denies erythema and Denies rash Neuro Denies dizziness, Denies headache(s) and Denies numbness Psych Denies anxiety and Denies depression Endo Denies palpitations Gavin/Lymph Denies easy bleeding, Denies easy bruising and Denies lymphadenopathy Aller/Immun Denies wheezing Physical Exam Vital Signs: Last Vital Signs Pulse 91 02/02/23 15:31 BP 121/78 02/02/23 15:31 BMI result Body Mass Index 28.0 Const General: no acute distress and well developed Nutritional Appearance: well nourished Orientation/consciousness: patient oriented x3 Limitations: no limitations Chest Other: Well-healed incision in the left axilla and left periareolar skin with no evidence of hematoma or seroma. There is skin retraction at the periareolar incision with mild radiation change to the surrounding skin. Breast is marked for radiation boost to the tumor site. Right breast: No skin change, no nipple discharge, no nipple retraction, no palpable mass, no enlarged lymph nodes. Chest/axillae images: 1. Incision in medial nipple-areolar complex with some retraction. Surrounding breast tissue is thickened on the left side consistent with radiation change. Resp Effort & Inspection: normal respiratory effort GI Inspection: Yes normal to inspection Skin General skin exam: no rashes or lesions noted Neuro General: patient oriented x3 Extrem General: Yes no clubbing, cyanosis or edema Assessment & Plan Assessment & Plan (1) Invasive ductal carcinoma of left breast: Code(s): C50.912 - Malignant neoplasm of unspecified site of left female breast Plan 42-year-old female patient diagnosed with invasive ductal carcinoma, grade 2 with ductal carcinoma in situ, ER/AL positive, HER2 Chase negative, Ki-67 expression low status post left breast lumpectomy with sentinel node biopsy. Today's examination reveals no suspicious findings in either breast. She is due for follow-up mammogram in August 2023. I recommended follow-up in 6 months for routine breast examination. She is welcome to call sooner for any new concerns. Coding Level of Care Code Est Pt Level 3 (96110) Diagnoses Invasive ductal carcinoma of left breast C50.912
[2023-02-02 15:31] VITALS: BP 121/78; PULSE 91; BMI 28.0
== END 2023-02-02 15:42 | disposition home or self-care (01) ==
PROVIDERS: PCP General Practice; Visit Provider Surgery
DX: C50.912 Malignant neoplasm of unspecified site of left female breast (principal)
CPT/HCPCS: 99213

== ENCOUNTER → 2023-02-02 15:20 | Outpatient (BNVA) | payer MEDICAID, SELFPAY | PROVIDERS: PCP General Practice; Visit Provider Surgery | DX: C50.912 Malignant neoplasm of unspecified site of left female breast (principal) | CPT/HCPCS: 99212 ==

== ENCOUNTER 2023-02-12 16:23 | Outpatient (REF) | payer MEDICAID, SELFPAY ==
[2023-02-12 17:22] LABS: MANUAL DIFF FLAG NO
[2023-02-12 17:26] LABS: Basophils Percent Auto 0.3 % (0-2); Eosinophils Absolute Auto 0.2 X10*3/uL (0.0-0.4); Eosinophils Percent Auto 2.8 % (0-4); Hematocrit 38.3 % (37.0-47.0); Hemoglobin 12.7 g/dl (12.0-16.0); Imm Gran Abs Auto 0.03 X10*3/uL (0.00-0.03); Imm Gran Pct Auto 0.4 % (0.0-0.4); Lymphocytes Absolute Auto 2.4 X10*3/uL (1.2-4.9); Lymphocytes Percent Auto 30.7 % (20-40); Mean Corpuscular HGB Conc 33.2 g/dl (31.0-35.0); Mean Corpuscular Hemoglobin 28.3 pg (27.0-33.0); Mean Corpuscular Volume 85.5 fL (80.0-98.0); Mean Platelet Volume 9.2 fL (9.4-12.3); Monocytes Absolute Auto 0.6 X10*3/uL (0.1-1.2); Monocytes Percent Auto 7.1 % (2-11); Neutrophils Absolute Auto 4.6 x10*3/uL (2.0-8.3); Neutrophils Percent Auto 58.7 % (45-73); Platelet Count 385 X10*3/uL (160-400); Red Blood Count 4.48 X10*6/uL (4.20-5.50); Red Cell Distribution Width 12.8 % (11.0-16.0); White Blood Count 7.8 X10*3/uL (4.8-10.8)
[2023-02-12 17:48] LABS: Alanine Aminotransferase 23 U/L (0-31); Albumin Level 4.6 g/dL (3.5-5.0); Alkaline Phosphatase 116 U/L (39-117); Anion Gap 15 (12-20); Aspartate Amino Transferase 25 U/L (5-31); Bilirubin Total 0.9 mg/dL (0.0-1.0); Blood Urea Nitrogen 11 mg/dL (9-16); Calcium 10.6 mg/dL (8.4-10.2); Carbon Dioxide 25 mmol/L (22-29); Chloride 103 mmol/L (96-108); Estimated Glomerular Filt Rate > 60; Glucose Random 99 mg/dL (60-115); Potassium 3.8 mmol/L (3.3-5.1); Sodium 139 mmol/L (135-145); Total Protein 8.9 g/dL (6.5-8.0)
[2023-02-12 18:02] LABS: TSH reflex Free T4 0.66 uIU/mL (0.32-4.0)
== END 2023-02-12 16:24 | disposition home or self-care (01) ==
LOC: HO.HHCL 16:23
PROVIDERS: Visit Provider General Practice
DX: Z71.3 Dietary counseling and surveillance (principal)
CPT/HCPCS: 36415; 80053; 84443; 85025

== ENCOUNTER 2023-03-29 15:21 | Outpatient (REF) | payer MEDICAID, SELFPAY ==
[2023-03-29 17:48] LABS: Anion Gap 12 (12-20); Blood Urea Nitrogen 12 mg/dL (9-16); Calcium 10.2 mg/dL (8.4-10.2); Carbon Dioxide 27 mmol/L (22-29); Chloride 105 mmol/L (96-108); Estimated Glomerular Filt Rate > 60; Glucose Random 114 mg/dL (60-115); Sodium 140 mmol/L (135-145)
== END 2023-03-29 15:22 | disposition home or self-care (01) ==
LOC: HO.HHCL 15:21
PROVIDERS: Visit Provider General Practice
DX: E83.52 Hypercalcemia (principal)
CPT/HCPCS: 36415; 80048

== ENCOUNTER 2023-04-30 14:56 | Outpatient (REF) | payer MEDICAID, SELFPAY | END 2023-04-30 14:57 | disposition home or self-care (01) | LOC: HO.MAMMO 14:56 | PROVIDERS: PCP General Practice; Visit Provider Surgery | DX: R92.8 Other abnormal and inconclusive findings on diagnostic imaging of breast (principal) | CPT/HCPCS: 77061; 77065 ==

== ENCOUNTER → 2023-04-30 15:00 | Outpatient (BNV) | payer MEDICAID, SELFPAY | PROVIDERS: PCP General Practice; Visit Provider Radiology Diagnostic Radiology | DX: R92.1 Mammographic calcification found on diagnostic imaging of breast (principal) | CPT/HCPCS: 77061; 77065 ==

== ENCOUNTER 2023-10-15 14:41 | Outpatient (REF) | payer MEDICAID, SELFPAY ==
--- NOTE | ~2023-10-15 | MM_ITS ---
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 Year 2 follow-up postop protocol bilateral screening. COMPARISON: Mammography: 04/30/2023, 10/15/2022 stereotactic right biopsy (benign), 09/08/2022, stereotactic left biopsy 10/13/2021 (IDC and DCIS), 06/21/2021 bilateral screening (baseline). TECHNIQUE: Digital breast tomosynthesis is performed in both the craniocaudal and mediolateral oblique views along with computer-aided detection (CAD). Synthesized 2D images are generated from the tomosynthesis. In addition, spot magnification left CC, and left ML x2 were obtained, as well as a second full-field left MLO view. FINDINGS: The breasts are heterogeneously dense, which may obscure small masses (ACR BI-RADS breast composition Category c). There are post lumpectomy changes with scarring in the retroareolar left breast, with mild thickening of the skin and trabecular markings from post therapeutic changes. Lumpectomy scar has a similar appearance without suspicious changes or evidence of recurrence. Post biopsy marker in the 6:00 axis right breast with a few remaining scattered benign-appearing calcifications. No aggressive changes. No new suspicious calcifications, new areas of architectural distortion, or developing suspicious masses in either breast. Right breast parenchymal pattern is unchanged from prior exams. Lateral aspect left breast parenchymal pattern is unchanged. No axillary adenopathy present. MM/MM tomosynthesis diagnostic BI IMPRESSION: -There are no findings in either breast suspicious for malignancy. -There are stable post treatment related changes left breast with stable scarring. No evidence of recurrence. -There are stable benign findings right breast. -Recommend one-year follow-up for year 3 postop protocol. ASSESSMENT: BI-RADS BI-RADS 2 - Benign Findings RECOMMENDATION: 1 year F/U Results were provided to the patient at time of visit by the technologist. This patient's information was entered into a reminder system with a target due date for their next mammogram.
== END 2023-10-15 14:42 | disposition home or self-care (01) ==
LOC: HO.MAMMO 14:41
PROVIDERS: PCP General Practice; Visit Provider Surgery
DX: R92.8 Other abnormal and inconclusive findings on diagnostic imaging of breast (principal)
CPT/HCPCS: 77062; 77066

== ENCOUNTER → 2023-10-15 15:00 | Outpatient (BNV) | payer MEDICAID, SELFPAY | PROVIDERS: PCP General Practice; Visit Provider Radiology Diagnostic Radiology | DX: R92.1 Mammographic calcification found on diagnostic imaging of breast (principal) | CPT/HCPCS: 77062; 77066 ==

== ENCOUNTER 2023-10-22 09:50 | Outpatient (AMB) | payer MEDICAID, SELFPAY ==
--- NOTE | 2023-10-22 09:52 | A.OFFVIS_ITS ---
Vital Signs 3 10/22/23 09:58 Height 5 ft 4 in Weight 165 lb 4 oz BMI 28.4 BP 131/84 Blood Pressure Location Lt brachial Position Sitting Pulse 91 Intake Visit Reasons: 6 month breast exam Intake Note: Patient is seen in office for 6 month follow up visit, breast exam. Patient c/o: denies any concerns or changes, still taking the Letrozole with no side effects mm:10/15/23 Metallurgical Laboratory Assistant Required: No Cold Molding Press Operator: Cold Molding Press Operator Present Accompanied by: Mother Allergies No Known Allergies Allergy (Verified 10/22/23 09:59) Medication List - Last Reconciled 10/22/23 by Brian Gandhi MD cholecalciferol (vitamin D3) 50 mcg PO DAILY fluticasone propionate 50 mcg/actuation 2 sprays intranasal DAILY PRN letrozole 2.5 mg PO DAILY lisinopril 5 mg PO DAILY loratadine 10 mg PO DAILY PRN ondansetron 8 mg PO Q8H PRN HPI Comments Details: 43-year-old female patient diagnosed with invasive ductal carcinoma, 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 She underwent left breast lumpectomy with needle localization and left sentinel node biopsy on 11/05/2021. Pathology revealed a 2 cm invasive ductal carcinoma with positive inferior and medial margins. DCIS was also noted within microns of the medial and superior margins. Two of 5 sentinel lymph nodes or positive for metastatic carcinoma. She underwent a wider excision which was performed on 11/28/2021. Residual invasive ductal carcinoma was identified with negative margins of 1 mm at the anterior and lateral margin. Residual ductal carcinoma in situ was also found with negative margins to 1 mm at the anterior medial margin. She was evaluated by Dr. Muniz and received AC x4 cycles followed by Taxol weekly. She then underwent RT and tolerated this well. Genetic testing was negative for known mutations of clinical significance. Follow-up mammogram revealed punctate calcifications felt to be suspicious for malignancy. A stereotactic biopsy was performed on 10/15/2022. Pathology revealed Benign breast tissue with fibrocystic changes, columnar cell changes and calcifications; no atypia or malignancy identified. Her most recent mammogram dated 10/15/2023 revealed stable post therapy changes in the left breast but no mammographic evidence of malignancy (BI-RADS 2). Follow-up diagnostic mammogram is recommended in 1 year. She feels well and denies any ongoing breast symptoms at this time. She continues on letrozole which she is tolerating well. [facility] Medical History Ductal carcinoma in situ of left breast Invasive ductal carcinoma of left breast Anxiety Surgical History History of lumpectomy of left breast (11/06/21) Family History Paternal Uncle Throat cancer Social History Household Members: Family Household Members Other:: Mother Housing: House Alcohol intake: never Patient Tobacco Use Status: Never used Tobacco service: No Current occupational status: unemployed Female Reproductive History Menstrual Age of Menarche: 11 Review of Systems Const All systems reviewed & are unremarkable except as noted in HPI and below Denies chills, Denies fever(s), Denies headache(s) and Denies poor appetite ENT Denies dizziness and Denies headache(s) Card Denies chest pain, Denies rapid heart rate, Denies palpitations and Denies slow heart rate Resp Denies chest congestion, Denies cough, Denies pain on inspiration and Denies wheezing GI Denies abdominal pain, Denies bloating, Denies change in stool character, Denies constipation, Denies diarrhea, Denies nausea, Denies vomiting and Denies hematemesis Musc Denies back pain, Denies arthralgias, Denies joint swelling and Denies numbness Skin/Breast Denies change in pigmentation, Denies erythema and Denies rash Neuro Denies dizziness, Denies headache(s) and Denies numbness Psych Denies anxiety and Denies depression Endo Denies palpitations Gavin/Lymph Denies easy bleeding, Denies easy bruising and Denies lymphadenopathy Aller/Immun Denies wheezing Physical Exam Vital Signs: Last Vital Signs Pulse 91 10/22/23 09:58 BP 131/84 10/22/23 09:58 BMI result Body Mass Index 28.4 Const General: no acute distress and well developed Nutritional Appearance: well nourished Orientation/consciousness: patient oriented x3 Limitations: no limitations Chest Other: Well-healed incision in the left axilla and left periareolar skin with no evidence of hematoma or seroma. There is skin retraction at the periareolar incision with minimal radiation change to the surrounding skin. No palpable mass or enlarged lymph nodes. Right breast: No skin change, no nipple discharge, no nipple retraction, no palpable mass, no enlarged lymph nodes. Chest/axillae images: 2 1. 2. 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 Today's examination reveals no suspicious findings in either breast. Her most recent mammogram of 10/15/2023 revealed post therapy changes but no mammographic evidence of malignancy (BI-RADS 2). Diagnostic mammogram is recommended in 1 year. I recommended follow-up examination in 6 months. Coding Level of Care Code Est Pt Level 3 (07517) Diagnoses Invasive ductal carcinoma of left breast C50.912
[2023-10-22 09:58] VITALS: BP 131/84; PULSE 91; BMI 28.4
== END 2023-10-22 10:06 | disposition home or self-care (01) ==
PROVIDERS: PCP General Practice; Referring Provider General Practice; Visit Provider Surgery
DX: C50.912 Malignant neoplasm of unspecified site of left female breast (principal)
CPT/HCPCS: 99213

== ENCOUNTER → 2023-10-22 09:50 | Outpatient (BNVA) | payer MEDICAID, SELFPAY | PROVIDERS: PCP General Practice; Visit Provider Surgery | DX: C50.912 Malignant neoplasm of unspecified site of left female breast (principal) | CPT/HCPCS: 99212 ==

== ENCOUNTER 2023-11-19 09:08 | Outpatient (REF) | payer MEDICAID, SELFPAY ==
--- NOTE | ~2023-11-19 | US_ITS ---
EXAMINATION: US ABDOMEN COMPLETE CLINICAL INFORMATION: Elevated liver enzymes. COMPARISON: None available. TECHNIQUE: Real-time imaging of the abdominal viscera. Limited visualization due to bowel gas. FINDINGS: PANCREAS: Limited visualization of pancreatic tail and head. Imaged portion of pancreatic body is unremarkable. ABDOMINAL AORTA: The proximal, mid, and distal segments are within normal limits normal in caliber. INFERIOR VENA CAVA: Visualized portions are normal. LIVER: Hepatomegaly, 19.0 cm. Increased hepatic parenchymal heterogeneity and echogenicity could be associated with hepatocellular disease/hepatic steatosis and substantially limits visualization. Correlation with liver function tests and clinical exam recommended to determine further management. GALLBLADDER: No gallstones. No gallbladder wall thickening. COMMON BILE DUCT: Normal in caliber measuring 0.3 cm in diameter. RIGHT KIDNEY: No hydronephrosis. No renal calculi. Limited visualization. The kidney measures 12.6 cm in maximum dimension. LEFT KIDNEY: No hydronephrosis. No renal calculi. Limited visualization. The kidney measures 10.7 cm in maximum dimension. SPLEEN: Normal. The spleen measures 8.6 cm in maximum dimension. FREE FLUID: None. US/US abdomen complete IMPRESSION: Hepatomegaly, 19.0 cm. Increased hepatic parenchymal heterogeneity and echogenicity could be associated with hepatocellular disease/hepatic steatosis and substantially limits visualization. Correlation with liver function tests and clinical exam recommended to determine further management.
--- NOTE | 2023-12-08 09:45 | PM.EVENT ---
I discussed ultrasound findings with patient's mother. She does have hepatomegaly, possibly hepatocellular disease/hepatic steatosis. She was advised about diet and weight loss. Her last cholesterol was checked in 2020 which was normal. I have advised her to follow up with her PCP and have her cholesterol checked as well. If she continues to have LFT elevation, she will be referred to GI.
== END 2023-11-19 09:09 | disposition home or self-care (01) ==
LOC: HO.US 09:08
PROVIDERS: PCP General Practice; Visit Provider Internal Medicine
DX: C50.912 Malignant neoplasm of unspecified site of left female breast (principal)
CPT/HCPCS: 76700

== ENCOUNTER 2024-04-25 10:33 | Outpatient (AMB) | payer MEDICAID, SELFPAY ==
[2024-04-25 10:34] VITALS: BP 129/77; PULSE 94; BMI 28.0
--- NOTE | 2024-04-25 10:34 | MHC.OFFVIS ---
Vital Signs 04/25/24 10:34 Height 5 ft 4 in Weight 163 lb BMI 28.0 BP 129/77 Blood Pressure Location Rt brachial Position Sitting Pulse 94 Intake Visit Reasons: 6 month breast exam Intake Note: Patient is seen in office for 6 month follow up visit, breast exam. Patient's mother c/o; reports no breast complaints. 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 She underwent left breast lumpectomy with needle localization and left sentinel node biopsy on 11/05/2021. Pathology revealed a 2 cm invasive ductal carcinoma with positive inferior and medial margins. DCIS was also noted within microns of the medial and superior margins. Two of 5 sentinel lymph nodes or positive for metastatic carcinoma. She underwent a wider excision which was performed on 11/28/2021. Residual invasive ductal carcinoma was identified with negative margins of 1 mm at the anterior and lateral margin. Residual ductal carcinoma in situ was also found with negative margins to 1 mm at the anterior medial margin. She was evaluated by Dr. Muniz and received AC x4 cycles followed by Taxol weekly. She then underwent RT and tolerated this well. Genetic testing was negative for known mutations of clinical significance. Follow-up mammogram revealed punctate calcifications felt to be suspicious for malignancy. A stereotactic biopsy was performed on 10/15/2022. Pathology revealed Benign breast tissue with fibrocystic changes, columnar cell changes and calcifications; no atypia or malignancy identified. Her most recent mammogram dated 10/15/2023 revealed stable post therapy changes in the left breast but no mammographic evidence of malignancy (BI-RADS 2). Follow-up diagnostic mammogram is scheduled for 10/17/2024. She feels well and denies any ongoing breast symptoms at this time. She continues on letrozole which she is tolerating well. [facility] Medical History Ductal carcinoma in situ of left breast Invasive ductal carcinoma of left breast Anxiety Surgical History History of lumpectomy of left breast (11/06/21) Family History Paternal Uncle Throat cancer Social History Household Members: Family Household Members Other:: Mother Housing: House Alcohol intake: never Patient Tobacco Use Status: Never used Tobacco service: No Current occupational status: unemployed Female Reproductive History Menstrual Age of Menarche: 11 Review of Systems Const All systems reviewed & are unremarkable except as noted in HPI and below Denies chills, Denies fever(s), Denies headache(s) and Denies poor appetite ENT Denies dizziness and Denies headache(s) Card Denies chest pain, Denies rapid heart rate, Denies palpitations and Denies slow heart rate Resp Denies chest congestion, Denies cough, Denies pain on inspiration and Denies wheezing GI Denies abdominal pain, Denies bloating, Denies change in stool character, Denies constipation, Denies diarrhea, Denies nausea, Denies vomiting and Denies hematemesis Musc Denies back pain, Denies arthralgias, Denies joint swelling and Denies numbness Skin/Breast Denies change in pigmentation, Denies erythema and Denies rash Neuro Denies dizziness, Denies headache(s) and Denies numbness Psych Denies anxiety and Denies depression Endo Denies palpitations Gavin/Lymph Denies easy bleeding, Denies easy bruising and Denies lymphadenopathy Aller/Immun Denies wheezing Physical Exam Const General: no acute distress and well developed Nutritional Appearance: well nourished Orientation/consciousness: patient oriented x3 Limitations: no limitations Chest Other: Well-healed incision in the left axilla and left periareolar skin with no evidence of hematoma or seroma. There is skin retraction at the periareolar incision with minimal radiation change to the surrounding skin. No palpable mass or enlarged lymph nodes. Right breast: No skin change, no nipple discharge, no nipple retraction, no palpable mass, no enlarged lymph nodes. Resp Effort & Inspection: normal respiratory effort GI Inspection: Yes normal to inspection Skin General skin exam: no rashes or lesions noted Neuro Other: Mobility Assessment: 1. 3 meter assessment time (seconds) 5 2. 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 Today's examination reveals no suspicious findings in either breast. Her most recent mammogram of 10/15/2023 revealed post therapy changes but no mammographic evidence of malignancy (BI-RADS 2). Diagnostic mammogram is recommended in 1 year. I recommended follow-up examination in 6 months. Coding Level of Care Code Est Pt Level 3 (50165) Complex EM visit Add On G2211 Diagnoses Invasive ductal carcinoma of left breast C50.912
== END 2024-04-25 10:48 | disposition home or self-care (01) ==
PROVIDERS: PCP General Practice; Visit Provider Surgery
DX: C50.912 Malignant neoplasm of unspecified site of left female breast (principal)
CPT/HCPCS: 99213

== ENCOUNTER → 2024-04-25 10:33 | Outpatient (BNVA) | payer MEDICAID, SELFPAY | PROVIDERS: PCP General Practice; Visit Provider Surgery | DX: C50.912 Malignant neoplasm of unspecified site of left female breast (principal) | CPT/HCPCS: 99212 ==

== ENCOUNTER 2024-10-11 11:20 | Outpatient (REF) | payer MEDICAID, SELFPAY ==
--- NOTE | ~2024-10-11 | MM_ITS ---
EXAMINATION: MM DIAGNOSTIC DIGITAL BREAST TOMOSYNTHESIS, BILATERAL CLINICAL INFORMATION: History of left breast cancer in 2021 status post lumpectomy. History of benign right stereotactic core needle biopsy of calcifications in 2022. COMPARISON: Mammography: Comparison is made with relevant prior exams. TECHNIQUE: Digital breast mammography with tomosynthesis is performed in both the craniocaudal and mediolateral oblique views along with computer-aided detection (CAD). FINDINGS: There are scattered areas of fibroglandular density (ACR BI-RADS breast composition Category b). Post left lumpectomy changes are stable. Right marker clip from previous benign needle core biopsy. There are no significant masses, abnormal calcifications, or other abnormalities. Results are provided to the patient at time of visit by the technologist. MM/MM tomosynthesis diagnostic BI IMPRESSION: No mammographic evidence of malignancy. ASSESSMENT: BI-RADS BI-RADS 2 - Benign Findings RECOMMENDATION: 1 year F/U This patient's information was entered into a reminder system with a target due date for their next mammogram. Electronically signed by: Kiah Ramos DO 10/11/2024 12:32 PM EDT
--- OUTSIDE RECORDS SUMMARY | 2024-10-11 13:15 | XMS_ITS | Encounter Summary ---
Author Organization [employer] Address [address] [place] [address] Care Team Providers Care Marketing Assistant Name Role Phone Ольга Koo MD Primary Care Provider [phone] Encounter Details Date Type Department Care Team (Late st Contact Info) Description 10/11/2024 Orders Only [facility] External Provider, [facility] Social History Tobacco Use Types Packs/Day Years Used Date Smoking Tobacco: Never Passive Smoke Exposure: Never Smokeless Tobacco: Never Alcohol Use Standard Drinks/Week Comments Never 0 (1 standard drink = 0.6 oz pur e alcohol) Depression Answer Date Recorded Patient Health Questionnaire-9 Score 0 07/03/2022 Housing Stability Answer Date Recorded What is your housing situation today? I have chasidy hernandez 04/18/[address] you li ve. Do you have problems with any of the following? None of the above 04/18/2024 Food Insecurity Answer Date Recorded Within the past 12 months, y ou worried that your food would run out before you got money to buy more: Never True 04/18/2024 Within the past 12 months,th e food you bought just didn't last and you didn't have enough money to get more: Never True Transportation Answer Date Recorded In the past 12 months, has l ack of transportation kept you from medical appts, meetings, work or from getting things needed for daily living? No 04/18/2024 Utilities Answer Date Recorded In the past 12 months, has t he electric, gas, oil or water company threatened to shut off services in your home? No 04/18/2024 Depression Answer Date Recorded Patient Health Questionnaire-2 Score 2 04/18/2024 Internet Access Answer Date Recorded Internet Access Q1 No 04/18/2024 Internet Access Q2 Not on file 04/18/2024 Comments Unknown Sex and Gender Information Value Date Recorded Sex Assigned at Female 02/23/2022 10:16 AM EDT Legal Sex Female 10:16 AM EDT Gender Identity Female 02/23/2022 10:16 AM EDT Sexual Orientation Choose not to disclose 2021 10:16 AM EDT documented as of this encounter Plan of Treatment Not on file documented as of this encounter Procedures Procedure Name Priority Date/Time Associated Diagnosis Comments BI MAMMOGRAM DIAGNOSTIC TOMOSYNTHESIS BILATERAL Routine 10/11/2024 11:45 AM EDT documented in this encounter Results * BI Mammogram Diagnostic Tomosynthesis Bilateral (10/11/2024 11:45 AM EDT) Anatomical Region Laterality Modality Breast Bilateral Mammography 10/11/2024 11:4 5 AM EDT Narrative 10/11/2024 12:35 PM EDT [address] [place] [address] Mammography Report Signed Patient: Kiki Muniz MR#: [id number] : 1980 Acct:[id number] Age/Sex: 44 / F ADM Date: 10/11/24 Loc: HO.MAMMO Attending Dr: Brian Gandhi MD Ordering Physician: Montana Hanley MD Results: 2Ben ign Findings Date of Service: 10/11/24 Follow Up: 1 Year From Orig ina Mammogram Procedure(s): MM tomosynthesis diagnostic BI Accession Number(s): [id number] cc: Ольга Koo; Montana Hanley MD EXAMINATION: MM DIAGNOSTIC DIGITAL BREAST TOMOSYNTHESIS, BILATERAL CLINICAL INFORMATION: History of left breast cancer in 2021 status post lumpectomy. History of benign right stereotactic core needle biopsy of calcifications in 2022. COMPARISON: Mammography: Comparison is made with relevant prior exams. TECHNIQUE: Digital breast mammography with tomosynthesis is performed in both the craniocaudal and mediolateral oblique views along with computer-aided detection (CAD). FINDINGS: There are scattered areas of fibroglandular density (ACR BI-RADS breast composition Category b). Post left lumpectomy changes are stable. Right marker clip from previous benign needle core biopsy. There are no significant masses, abnormal calcifications, or other abnormalities. Results are provided to the patient at time of visit by the technologist. MM/MM tomosynthesis diagnostic BI IMPRESSION: No mammographic evidence of malignancy. ASSESSMENT: BI-RADS BI-RADS 2 - Benign Findings RECOMMENDATION: 1 year F/U This patient's information was entered into a reminder system with a target due date for their next mammogram. Electronically signed by: Kiah Ramos DO 10/11/2024 12:32 PM EDT RP Dictated By: Kiah Ramos DO Signed By: <Electronically signed by Kiah Ramos DO in OV> 10/11/24 1232 DD/ 1145 TD/TT: 10/11/24 1220 Sizing Machine And Drier Operator: Procedure Note Donotuseinterpreter, Image - [facility]/11/20[facility] [address] [place] [address] Mammography Report Signed Patient: Kiki MunizMR#: [id number] : 1980Acct:[id number] Age/Sex: 44 / FADM Date: 10/11/24 Loc: HO.MAMMO Attending Dr: Brian Gandhi MD Ordering Physician: Montana Hanley MDResults: 2Ben ign Findings Date of Service: 10/11/24Follow Up: 1 Year From Orig ina Mammogram Procedure(s): MM tomosynthesis diagnostic BI Accession Number(s): [id number] cc: Ольга Koo; Montana Hanley MD EXAMINATION: MM DIAGNOSTIC DIGITAL BREAST TOMOSYNTHESIS, BILATERAL CLINICAL INFORMATION: History of left breast cancer in 2021 status post lumpectomy. History of benign right stereotactic core needle biopsy of calcifications in 2022. COMPARISON: Mammography: Comparison is made with relevant prior exams. TECHNIQUE: Digital breast mammography with tomosynthesis is performed in both the craniocaudal and mediolateral oblique views along with computer-aided detection (CAD). FINDINGS: There are scattered areas of fibroglandular density (ACR BI-RADS breast composition Category b). Post left lumpectomy changes are stable. Right marker clip from previous benign needle core biopsy. There are no significant masses, abnormal calcifications, or other abnormalities. Results are provided to the patient at time of visit by the technologist. MM/MM tomosynthesis diagnostic BI IMPRESSION: No mammographic evidence of malignancy. ASSESSMENT: BI-RADS BI-RADS 2 - Benign Findings RECOMMENDATION: 1 year F/U This patient's information was entered into a reminder system with a target due date for their next mammogram. Electronically signed by: Kiah Ramos DO 10/11/2024 12:32 PM EDT Workstation: [employer] Dictated By: Kiah Ramos DO Signed By: <Electronically signed by Kiah Ramos DO in OV> 10/11/24 1232 DD/ 1145 TD/TT: 10/11/24 1220 Sizing Machine And Drier Operator: [facility] External Provider IMG BI PROCEDURES Final Result documented in this encounter Visit Diagnoses Not on filedocumented in this encounter Additional Health Concerns Assessment Noted Time PHQ-9 Depression Total Score: 0 07/04/19 23 3:38 PM EST documented as of this encounter Care Teams Marketing Assistant Relationship Specialty Start Date End Date Ольга Koo MD [address] [place] [address] PCP - General Family Medicine 04/08/22 documented as of this encounter
== END 2024-10-11 11:21 | disposition home or self-care (01) ==
LOC: HO.MAMMO 11:20
PROVIDERS: Absent Provider Internal Medicine; PCP General Practice; Visit Provider Surgery
DX: C50.912 Malignant neoplasm of unspecified site of left female breast (principal)
CPT/HCPCS: 77062; 77066

== ENCOUNTER → 2024-10-11 11:23 | Outpatient (BNV) | payer MEDICAID, SELFPAY | PROVIDERS: Absent Provider Internal Medicine; PCP General Practice; Visit Provider Internal Medicine | DX: R92.323 Mammographic fibroglandular density, bilateral breasts (principal) | CPT/HCPCS: 77062; 77066 ==

== ENCOUNTER 2024-11-27 09:49 | Outpatient (AMB) | payer MEDICAID, SELFPAY ==
--- NOTE | 2024-11-27 09:55 | MHC.OFFVIS ---
Vital Signs 11/27/24 10:01 Height 5 ft 4 in Weight 165 lb 8 oz BMI 28.4 BP 132/77 Blood Pressure Location Lt brachial Position Sitting Pulse 85 Intake Visit Reasons: 6 month breast exam Intake Note: Patient is seen in office for 6 month follow up visit, breast exam. 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 She underwent left breast lumpectomy with needle localization and left sentinel node biopsy on 11/05/2021. Pathology revealed a 2 cm invasive ductal carcinoma with positive inferior and medial margins. DCIS was also noted within microns of the medial and superior margins. Two of 5 sentinel lymph nodes or positive for metastatic carcinoma. She underwent a wider excision which was performed on 11/28/2021. Residual invasive ductal carcinoma was identified with negative margins of 1 mm at the anterior and lateral margin. Residual ductal carcinoma in situ was also found with negative margins to 1 mm at the anterior medial margin. She was evaluated by Dr. Wu and received AC x4 cycles followed by Taxol weekly. She then underwent RT and tolerated this well. Genetic testing was negative for known mutations of clinical significance. Follow-up mammogram revealed punctate calcifications felt to be suspicious for malignancy. A stereotactic biopsy was performed on 10/15/2022. Pathology revealed Benign breast tissue with fibrocystic changes, columnar cell changes and calcifications; no atypia or malignancy identified. Her most recent mammogram dated 10/11/2024 revealed no mammographic evidence of malignancy (BI-RADS 2). She is scheduled for her next annual mammogram on 10/19/2025. She feels well and denies any ongoing breast symptoms at this time. She continues on letrozole which she is tolerating well. [facility] Medical History Ductal carcinoma in situ of left breast Invasive ductal carcinoma of left breast Anxiety Surgical History History of lumpectomy of left breast (11/06/21) Family History Paternal Uncle Throat cancer Social History Household Members: Family Household Members Other:: Mother Housing: House Alcohol intake: never Patient Tobacco Use Status: Never used Tobacco service: No Current occupational status: unemployed Female Reproductive History Menstrual Age of Menarche: 11 Review of Systems Const All systems reviewed & are unremarkable except as noted in HPI and below Physical Exam Const General: no acute distress and well developed Nutritional Appearance: well nourished Orientation/consciousness: patient oriented x3 Limitations: no limitations Chest Other: Well-healed incision in the left axilla and left periareolar skin with no evidence of hematoma or seroma. There is skin retraction at the periareolar incision with minimal radiation change to the surrounding skin. No palpable mass or enlarged lymph nodes. Right breast: No skin change, no nipple discharge, no nipple retraction, no palpable mass, no enlarged lymph nodes. Chest/axillae images:  1. Retracted skin incision Olivia areolar left breast 2. Left axillary incision Resp Effort & Inspection: normal respiratory effort GI Inspection: Yes normal to inspection Skin General skin exam: no rashes or lesions noted Neuro Other: Mobility Assessment: 1. 3 meter assessment time (seconds) 5 2. 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 Today's examination reveals no suspicious findings in either breast. Her most recent mammogram of 10/11/2024 revealed no mammographic evidence of malignancy (BI-RADS 2). She is scheduled for follow-up mammogram on 10/19/2025. She should follow up for routine breast examination in 6 months. Coding Level of Care Code Est Pt Level 3 (66619) Complex EM visit Add On G2211 Diagnoses Invasive ductal carcinoma of left breast C50.377
[2024-11-27 10:01] VITALS: BP 132/77; PULSE 85; BMI 28.4
--- OUTSIDE RECORDS SUMMARY | 2024-11-27 10:25 | XMS_ITS | Encounter Summary ---
Author Organization [employer] Address [address] [place] [address] [address] [place] [address] Care Team Providers Care Missile Inspector Name Role Phone Ольга Koo MD Primary Care Provider [phone] Encounter Details Date Type Department Care Team ([facility] Contact Info) Description 10/23/2022 Abstract [facility] [address] [place] [id number] Ольга Koo MD [address] [place], [place] [id number] Social History Tobacco Use Types Packs/Day Years Used Date Smoking Tobacco: Never Passive Smoke Exposure: Never Smokeless Tobacco: Never Alcohol Use Standard Drinks/Week Comments Never 0 (1 standard drink = 0.6 oz pur e alcohol) Depression Answer Date Recorded Patient Health Questionnaire-9 Score 0 07/03/2022 Depression Answer Date Recorded Patient Health Questionnaire-2 Score 0 07/03/2022 Comments Unknown Sex and Gender Information Value Date Recorded Sex Assigned at Female 02/23/2022 10:16 AM EDT Legal Sex Female 10:16 AM EDT Gender Identity Female 02/23/2022 10:16 AM EDT Sexual Orientation Choose not to disclose 2021 10:16 AM EDT COVID-19 Exposure Response Date Recorded In the last 10 days, have yo u been in contact with someone who was confirmed or suspected to have Coronavirus/COVID-19? No / Unsure 10/09/2022 3:37 PM EDT documented as of this encounter Plan of Treatment Upcoming Encounters Date Type Department Care Team ([facility] Contact Info) Description 01/19/2025 4:00 PM EDT Office Visit [facility] [address] [place] [address] Ольга Koo MD [address] [place] [address] documented as of this encounter Visit Diagnoses Not on filedocumented in this encounter Additional Health Concerns Assessment Noted Time PHQ-9 Depression Total Score: 0 07/04/19 23 3:38 PM EST documented as of this encounter Care Teams Missile Inspector Relationship Specialty Start Date End Date Ольга Koo MD [address] [place] [address] PCP - General Family Medicine 04/08/22 documented as of this encounter
--- OUTSIDE RECORDS SUMMARY | 2024-11-27 10:25 | XMS_ITS | Clinical Summary ---
Author Organization [address] [facility] Address [address] [place] [address] Phone Care Team Providers Care Local Telephone Operator Name Role Phone Ольга Koo MD Primary Care Provider [phone] Allergies No known active allergies Medications amoxicillin (AMOXIL) 250 mg capsule Take 1 Capsule by mouth 3 times daily. Active cholecalciferol (VITAMIN D-3) 1,250 mcg (50,000 unit) capsule Take by mouth. Active fluticasone propionate (FLONASE) 50 mcg/actuation nasal spray 2 Sprays by Each Nare route daily. Active letrozole (FEMARA) 2.5 mg tablet Take 1 Tablet by mouth daily. Active lisinopriL (PRINIVIL,ZESTR IL) 10 mg tablet Take 1 Tablet by mouth daily. Active loratadine 10 mg capsule Take by mouth. Active ONDANSETRON ORAL Take 1 Tablet by mouth once. Active acetaminophen (TYLENOL) 325 mg capsule Take by mouth. Active lisinopriL (PRINIVIL,ZESTR IL) 5 mg tablet Take 1 tablet (5 mg total) by mouth 1 (one) time each day. Active Social History Tobacco Use Types Packs/Day Years Used Date Smoking Tobacco: Never Assessed Comments Unknown Sex and Gender Information Value Date Recorded Sex Assigned at Not on file Legal Sex Female 8:26 PM EST Gender Identity Not on file Sexual Orientation Not on file Last Filed Vital Signs Vital Sign Reading Time Taken Comments Blood Pressure - - Pulse - - Temperature - - Respiratory Rate - - Oxygen Saturation - - Inhaled Oxygen Concentration - - Weight 77.1 kg (170 lb) 05/23/2024 3:26 PM EST Height 167.6 cm (5' 5.98 ) 05/23/2024 3:26 PM ES T Body Mass Index 27.45 05/23/2024 3:26 PM EST Plan of Treatment Upcoming Encounters Date Type Department Care Team (Late st Contact Info) Description 11/28/2024 3:30 PM EDT Office Visit [facility] [place] [address] [phone] Keshawn Tierney, DPM [address] [address] Health Maintenance Due Date Last Done Comments Breast Cancer Screening 1980 Hepatitis A Vaccines (1 of 2 - Risk 2-dose series) 09/30/1998 Hepatitis B Vaccines (1 of 3 - 19+ 3-dose series) 09/30/1998 Pneumococcal Vaccine: Pediatrics (0 to 5 Years) and At-Risk Patients (6 to 49 Years) (1 of 2 - PCV) 09/30/1998 Cervical Cancer Screening: Pap Smear 09/30/2000 Colorectal Cancer Screening: Colonoscopy 05/21/2023 Hepatitis C Screening 05/21/2023 Social Influencers of Health Screening 05/21/2023 COVID-19 Vaccine ( season) 2023 04/25/2021, 08/05/2020, 07/08/2020 DTaP,Tdap,and Td Vaccines (2 - Td or Tdap) 02/27/2024 02/26/2014 Depression Screening 04/26/2024 Hypertension/CHF/CAD Annual BMP Blood Test 05/24/2024 Cholesterol Screening (Lipid Panel) 10/10/2024 10/11/2019 Influenza Vaccine (#1) 2024 4, 02/01/2023, 01/24/2022, Additional history exists HIV Screening Completed 10/11/2019 HIB Vaccines Aged Out No longer eligi ble based on patient's age to complete this topic HPV Vaccines Aged Out No longer eligi ble based on patient's age to complete this topic IPV Vaccines Aged Out No longer eligi ble based on patient's age to complete this topic MMR Vaccines Aged Out No longer eligi ble based on patient's age to complete this topic Meningococcal ACWY Vaccine Aged Out N o longer eligible based on patient's age to complete this topic Meningococcal B Vaccine Aged Out No l onger eligible based on patient's age to complete this topic RSV Immunization Patients Under 20 months Aged Out No longer eligible based on patient's age to complete this topic Varicella Vaccines Aged Out No longer eligible based on patient's age to complete this topic Insurance MEDICAID - [place] Care Teams Local Telephone Operator Relationship Specialty Start Date End Date Ольга Koo MD [address] [place] [address] PCP - General 06/29/23
== END 2024-11-27 10:09 | disposition home or self-care (01) ==
LOC: HO.HGS 09:49
PROVIDERS: PCP General Practice; Visit Provider Surgery
DX: C50.912 Malignant neoplasm of unspecified site of left female breast (principal)
CPT/HCPCS: 99213

== ENCOUNTER → 2024-11-27 09:49 | Outpatient (BNVA) | payer MEDICAID, SELFPAY | PROVIDERS: PCP General Practice; Visit Provider Surgery | DX: Z71.2 Person consulting for explanation of examination or test findings (principal); C50.912 Malignant neoplasm of unspecified site of left female breast | CPT/HCPCS: 99212 ==

== ENCOUNTER 2025-01-09 15:48 | Outpatient (REF) | payer MEDICAID, SELFPAY ==
--- OUTSIDE RECORDS SUMMARY | 2025-01-10 12:48 | XMS_ITS | Clinical Summary ---
Author Organization [facility] Address [address] [place] [address] Phone Care Team Providers Care Associate Field Service Engineer Name Role Phone Ольга Koo MD Primary [...] 3:30 PM EDT Office Visit Orthopedic Surgery [facility] [address] [address] Keshawn Tierney, DPM Ingrowing nail [...] PM EST Office Visit Orthopedic Surgery - [place] [address] [address] Keshawn Tierney, DPM [address] [address] Health Maintenance Due Date Last [...] topic Insurance MEDICAID - [place] Care Teams Associate Field Service Engineer Relationship Specialty Start Date End Date Ольга Koo MD [address] [place] [address] PCP - General 06/29/23
--- OUTSIDE RECORDS SUMMARY | 2025-01-10 12:48 | XMS_ITS | Encounter Summary ---
Author Organization [employer] Address [address] [facility] 7t [place] [address] Care Team Providers Care Blow Moulding Machine Operator Name Role Phone Ольга Koo MD Primary Care Provider [phone] Encounter Details Date Type Department Care Team (Late st Contact Info) Description 03/21/2023 Orders Only [facility] [address] [place] [address] Ольга Koo MD [address] [place] [address] Hypercalcemia (Primary Dx) Social History Tobacco Use [...] Description 01/19/2025 4:00 PM EDT Office Visit [facility] [address] [place], [place] [phone] Ольга Koo MD [address] [place] [address] documented as of this encounter Procedures Procedure Name Priority Date/Time Associated Diagnosis Comments BASIC METABOLIC PANEL Routine 03/29/2023 3:22 PM EST Hypercalcemia documented in this encounter Results * Basic Metabolic Panel (03/29/2023 3:22 PM EST) Sodium 140 135 - 145 mmol/L [facility] Potassium 4.0 3.3 - 5.1 mmol/L [facility] Chloride 105 96 - 108 mmol/L [facility] Carbon Dioxide 27 22 - 29 mmol/L [facility] Anion Gap 12 12 - 20 [facility] Urea Nitrogen (BUN) 12 9 - 16 mg/dL [facility] Creatinine, Serum 0.75 0.5 - 1.4 mg/dL [facility] Estimated Glomerular Filt Rate >60 [facility] Comment:NOTE: For -Am erican individuals, multiply the result by 1.210.Chronic Kidney Disease: Estimated GFR < 60 mL/min/1.32t6Huewjj Kidney Disease: Estimated GFR < 15 mL/min/1.73m2 Glucose 114 60 - 115 mg/dL [facility] Calcium 10.2 8.4 - 10.2 mg/dL [facility] Blood Venous blood specimen / Unknown 03/29/2023 3:22 PM EST 03/29/2023 5:26 PM EST us Ольга Koo MD LAB BLOOD ORDERABLES Final Res ult [facility] [address] [place] [address] [phone] documented in this encounter Visit Diagnoses Diagnosis Hypercalcemia- Primary documented in this encounter Additional Health Concerns Assessment Noted Time PHQ-9 Depression Total Score: 0 07/04/19 23 3:38 PM EST documented as of this encounter Care Teams Blow Moulding Machine Operator Relationship Specialty Start Date End Date Ольга Koo MD [address] [place] [address] PCP - General Family Medicine 04/08/22 documented as of this encounter
--- OUTSIDE RECORDS SUMMARY | 2025-01-10 12:48 | XMS_ITS | Encounter Summary ---
Author Organization [employer] Address [address] [place] [address] 7 [place] [address] Care Team Providers Care Retail Consultant Name Role Phone Ольга Koo MD Primary Care Provider [phone] Encounter Details Date Type Department Care Team ([facility] Contact Info) Description 10/23/2022 Abstract [facility] MEDICINE [address] [place] [phone] Elizabeth Mcbride, RN [address] [place] [address] Social History Tobacco Use Types Packs/Day Years [...] Description 01/19/2025 4:00 PM EDT Office Visit [facility] [address] [place] [address] [phone] Ольга Koo MD [address] [place] [address] documented as of this encounter Visit Diagnoses Not on filedocumented in this encounter Additional Health Concerns Assessment Noted Time PHQ-9 Depression Total Score: 0 07/04/19 23 3:38 PM EST documented as of this encounter Care Teams Retail Consultant Relationship Specialty Start Date End Date Ольга Koo MD [address] [place] [address] PCP - General Family Medicine 04/08/22 documented as of this encounter
--- OUTSIDE RECORDS SUMMARY | 2025-01-10 12:48 | XMS_ITS | Encounter Summary ---
Author Organization [employer] Address [address] [place] [address] 7t [place] [address] Care Team Providers Care Hims Clerk Name Role Phone Ольга Koo MD Primary Care Provider [phone] Encounter Details Date Type Department Care Team ([facility] Contact Info) Description 10/23/2022 Abstract [facility]INE [address] [place] [phone] Ольга Koo MD [address] [place], [place] [phone] Social History Tobacco Use Types Packs/Day Years [...] Upcoming Encounters Date Type Department Care Team ([facility] Contact Info) Description 01/19/2025 4:00 PM EDT Office Visit [facility] [address] [place] [address] Ольга Koo MD [address] [place] [address] documented as of this encounter Visit Diagnoses Not on filedocumented in this encounter Additional Health Concerns Assessment Noted Time PHQ-9 Depression Total Score: 0 07/04/19 23 3:38 PM EST documented as of this encounter Care Teams Hims Clerk Relationship Specialty Start Date End Date Ольга Koo MD [address] [place] [address] PCP - General Family Medicine 04/08/22 documented as of this encounter
--- OUTSIDE RECORDS SUMMARY | 2025-01-10 12:48 | XMS_ITS | Clinical Summary ---
Author Organization [employer] Address [address] [place] [address] 7t [place] [address] Care Team Providers Care Business Development Engineer Name Role Phone Ольга Koo MD Primary Care Provider [phone] Allergies No known active allergies Medications fluticasone [...] Plan (04/20/2024 6:30 AM EST): Going to [facility] to celebrate normal mammogram 10/15/23 Mood support/regulation, diet, and daily exercise in place We reviewed how those decrease her risk of reoccurance s/p chemo, radiation, lumpectomy On Letrozole for aromatase inhibition Sees Dr Wu at [facility] [place] care Handicap placard signed and obtained due to fatigue with walking long-distances Assessment & Plan (11/04/2023 10:10 AM EDT): Going to [facility] to celebrate normal mammogram 10/15/23 Mood support/regulation, diet, and daily exercise in place We reviewed how those decrease her risk of reoccurance s/p chemo, radiation, lumpectomy On Letrozole for aromatase inhibition Sees Dr Wu at [facility] [place] care Handicap placard signed and obtained due to fatigue with walking long-distances Assessment & Plan (06/25/2023 4:37 PM EST): Mood support/regulation, diet, and daily exercise in place We reviewed how those decrease her risk of reoccurance s/p chemo, radiation, lumpectomy On Letrozole for aromatase inhibition Sees Dr Wu at [facility] for oncology care Handicap placard form filled out for mother, due to fatigue with walking long distances Assessment & Plan (02/16/2023 9:06 AM EDT): Mood support/regulation, diet, and daily exercise in place We reviewed how those decrease her risk of reoccurance s/p chemo, radiation, lumpectomy On Letrozole for aromatase inhibition Sees Dr Wu at [facility] for oncology care Assessment & Plan (10/10/2022 [...] Finished chemo, about to start radiation at [facility] Reviewed precautions for virus/getting sick while traveling [...] Department Care Team Description 10/11/2024 Orders Only [facility] External Provider, [facility] from Last 3 Months Immunizations Immunization [...] Description 01/19/2025 4:00 PM EDT Office Visit [facility] [address] [place] [address] Ольга Koo MD [address] [place] [address] Health Maintenance Due Date Last Done Comments [...] Narrative 10/11/2024 12:35 PM EDT [facility] [address] [place] [address] Mammography Report Signed Patient: Kiki Muniz MR#: [id number] : 1980 Acct:[id number] Age/Sex: 44 / F ADM Date: 10/11/24 Loc: [facility] Attending Dr: Brian Gandhi MD Ordering Physician: Montana Hanley MD Results: 2Ben ign Findings Date of Service: 10/11/24 Follow Up: 1 Year From Orig inal Mammogram Procedure(s): MM tomosynthesis diagnostic BI Accession Number(s): [id number] cc: Ольга Koo; Montana Hanley MD EXAMINATION: [...] 10/11/24 1232 DD/ 1145 TD/TT: 10/11/24 1220 Stove Mechanic: Procedure Note Donotuseinterpreter, Image - 10/11/2024 [facility] [address] [place] [address] [place] [address] Mammography Report Signed Patient: Kiki MunizMR#: [id number] : 1980Acct:[id number] Age/Sex: 44 / FADM Date: 10/11/24 Loc: HO.MAMMO Attending Dr: Brian Gandhi MD Ordering Physician: Montana Hanley MDResults: 2Ben ign Findings Date of Service: 10/11/24Follow Up: 1 Year From Orig inal Mammogram Procedure(s): MM tomosynthesis diagnostic BI Accession Number(s): [id number] cc: Ольга Koo; Montana Hanley MD EXAMINATION: [...] 10/11/24 1232 DD/ 1145 TD/TT: 10/11/24 1220 Stove Mechanic: [facility] External Provider IMG BI PROCEDURES Final Result * HEPATITIS C AB W/REFL TO HCV RNA, QN, PCR (10/11/2019 11:31 AM EDT) HEPATITIS C ANTIBODY NON-REACT SULEIMAN NON-REACT SULEIMAN [facility] INDEX 0.04 <1.00 [facility] Comment: HCV antibody was non-reactive. There is no laboratory evidence of HCV infection. In most cases, no further action is required. However, if recent HCV exposure is suspected, a test for HCV RNA (test code 85596) is suggested. For additional information please refer to http://education.questdiagnostics.com/faq/JNR84f7 (This link is being provided for informational/ educational purposes only.) HEPATITIS C ANTIBODY NON-REACT SULEIMAN NON-REACT SULEIMAN [facility] INDEX 0.04 <1.00 [facility] Comment: HCV antibody was non-reactive. There is no laboratory evidence of HCV infection. In most cases, no further action is required. However, if recent HCV exposure is suspected, a test for HCV RNA (test code 33524) is suggested. For additional information please refer to http://Machine Talker/faq/JJQ24e9 (This link is being provided for informational/ educational purposes only.) HEPATITIS C ANTIBODY NON-REACT SULEIMAN NON-REACT SULEIMAN [facility] INDEX 0.04 <1.00 [facility] Comment: HCV antibody was non-reactive. There is no laboratory evidence of HCV infection. In most cases, no further action is required. However, if recent HCV exposure is suspected, a test for HCV RNA (test code 84295) is suggested. For additional information please refer to http://Machine Talker/faq/KAK32i6 (This link is being provided for informational/ educational purposes only.) 10/11/2019 11:3 1 AM EDT Bethany Camacho DO HISTORICAL/NON ORDERABLE LAB S Final Result [facility] [address] * HIV 1/2 ANTIGEN/ANTIBODY,FOURTH GENERATION W/RFL (10/11/2019 11:31 AM EDT) HIV-1/2 ANTIGEN AND ANTIBODIES, 4TH GENERATION W/ REFLEX NON-REACT SULEIMAN NON-REACT SULEIMAN [facility] Comment: HIV-1 antigen and HIV-1/HIV-2 [...] purpose. For additional information please refer to http://PathGroup.Belleds Technologies/faq/THH750 (This link is being provided for informational/ [...] purpose. For additional information please refer to http://Machine Talker/faq/OPV073 (This link is being provided for informational/ [...] purpose. For additional information please refer to http://[employer]Group.[employer] Technologies/faq/MHF674 (This link is being provided for informational/ [...] purpose. For additional information please refer to http://education.Bell[employer] Technologies/faq/HRX664 (This link is being provided for informational/ educational purposes only.) The performance of this assay has not been clinically validated in patients less than 2 years old. 10/11/2019 11:3 1 AM EDT us Bethany Camacho DO LAB BLOOD ORDERABLES Final R esult [facility] [address] * (ABNORMAL) LIPID PANEL, STANDARD (10/11/2019 11:31 AM EDT) Cholesterol, Total 198 <200 mg/dL [facility] Triglycerides 112 <150 mg/dL [facility] Triglycerides 112 <150 mg/dL [facility] Cholesterol, Total 198 <200 mg/dL [...] LDL-C. Jc SS et al. PADMA. 2013;310(19): 5825-9122 (http://education.Roobiq.Capricor/faq/EIC482) Triglycerides 112 <150 mg/dL [facility] [...] LDL-C. Jc SS et al. PADMA. 2013;310(19): 5933-2685 (http://education.Roobiq.Capricor/faq/SJE331) Cholesterol, Total 198 <200 mg/dL [facility] [...] LDL-C. Jc SS et al. PADMA. 2013;310(19): 2513-6434 (http://education.Roobiq.Capricor/faq/MIA475) Triglycerides 112 <150 mg/dL [facility] [...] LDL-C. Jc OLMSTEAD et al. PADMA. 2013;310(19): 6110-4145 (http://PathGroup.Branchly/faq/PID646) Chol/HDLC Ratio 4.6 <5.0 (calc) [facility] [...] LDL-C. Jc OLMSTEAD et al. PADMA. 2013;310(19): 7449-0451 (http://PathGroup.Branchly/faq/BGC918) Non-HDL Cholesterol 155(H) <130 mg/dL (calc) [facility] Comment: For patients with diabetes plus 1 major ASCVD risk factor, treating to a non-HDL-C goal of <100 mg/dL (LDL-C of <70 mg/dL) is considered a therapeutic option. 10/11/2019 11:3 1 AM EDT us Bethany Janice DO LAB BLOOD ORDERABLES Final R esult [facility] [address] [place] [address], from Last 3 Months or Most Recently Relevant to Health Maintenance Insurance [employer] Care Teams Business Development Engineer Relationship Specialty Start Date End Date Ольга Koo MD [address] [place] [address] PCP - General Family Medicine 04/08/22
[2025-01-10 14:01] LABS: Chlamydia pneumoniae PCR Not Detected (Not Detect.); Coronavirus 229E PCR Not Detected (Not Detect.); Coronavirus HKU1 PCR Not Detected (Not Detect.); Coronavirus NL63 PCR Not Detected (Not Detect.); Coronavirus OC43 PCR Not Detected (Not Detect.); RSV PCR Not Detected (Not Detect.); Rhino/Enterovirus PCR Not Detected (Not Detect.)
[2025-01-10 14:08] LABS: Influenza A H1 PCR Not Detected (Not Detect.); Influenza A H1-2009 PCR Not Detected (Not Detect.); Influenza A H3 PCR Not Detected (Not Detect.); SARS-CoV-2 PCR Detected (Not Detect.)
== END 2025-01-09 15:49 | disposition home or self-care (01) ==
LOC: HO.LNP 15:48
PROVIDERS: PCP General Practice; Visit Provider Physician Assistant Medical
DX: J06.9 Acute upper respiratory infection, unspecified (principal)
CPT/HCPCS: 87633; 99212

== ENCOUNTER 2025-01-09 15:48 | Outpatient (AMB) | payer MEDICAID, SELFPAY ==
[2025-01-09 15:57] VITALS: BP 108/70; PULSE 125; TEMP 37.5; O2SAT 99; BMI 28.0
--- NOTE | 2025-01-09 15:57 | AM.OFFWIN_ITS ---
Intake Vital Signs 01/09/25 15:57 Height 5 ft 4 in Weight 163 lb BMI 28.0 BP 108/70 Blood Pressure Location Rt brachial Position Sitting Pulse 125 H Pulse Source Pulse Oximeter Temp 99.5 F Temp Source Oral Pulse Oximetry (%) 99 Oxygen Delivery Method Room Air Intake Visit Reasons: EP body ache, head ache, coughing Intake Note: pt presents with body aches, headaches and coughing Patient Tobacco Use Status: Never used Tobacco Allergies No Known Allergies Allergy (Verified 01/09/25 16:00) Do you need a note to return to daycare/school/sports/work: No HPI HPI Comments History of Present Illness Details History - The patient is a 44-year-old female pr esenting with symptoms of cough, body ache, and headache. - Symptoms began today and include a dry cough, body ache, and headache. - No medication has been taken for these symptoms yet. - No shortness of breath, vomiting, dizz iness, diarrhea, or chest pain reported. - History of breast cancer, currently in remission. - She denies fever, chills, abd pain, or n/v/d. - She has no sick contacts. - She has no asthma and does not smoke. Physical Exam General: Cooperative, healthy appearing, comfortable and no acute distress Orientation/consciousness: Patient oriented x3 Limitations: No limitations Head: Normal to inspection Ears: Hearing grossly normal bilaterally, external ears normal and TM's normal bilaterally Nose: Normal external nose present, normal nares present, and no nasal discharge present. Face and sinus: Sinuses nontender to palpation. Mouth: Normal oral and palatal mucosa present and moist mucous membranes noted. Throat: Tonsils normal. Uvula is midline. Posterior oropharynx with erythema and no exudates. Eyes: Appearance normal, both eyes and all related structures Neck: Normal visual inspection, full ROM. No lymphadenopathy noted. Respiratory: Clear to auscultation bilaterally. Normal respiratory effort, able to speak in complete sentences. No respiratory distress, not tachypneic, no tripod positioning and no use of accessory muscles. Cardiovascular: Regular rate and rhythm. Normal S1 and S2 Skin: No rashes or lesions noted, but patient has an infection on the skin. Patient was informed and verbally consented to the use of an ambient scribe for clinic note documentation during this visit [facility] Medical History Ductal carcinoma in situ of left breast Invasive ductal carcinoma of left breast Anxiety Surgical History History of lumpectomy of left breast (11/06/21) Family History Paternal Uncle Throat cancer Social History Household Members: Family Household Members Other:: Mother Housing: House Alcohol intake: never Patient Tobacco Use Status: Never used Tobacco service: No Current occupational status: unemployed Female Reproductive History Menstrual Age of Menarche: 11 Review of Systems Const All systems reviewed & are unremarkable except as noted in HPI and below Physical Exam Vital Signs: Last Vital Signs Temp 99.5 F 01/09/25 15:57 Pulse 125 H 01/09/25 15:57 BP 108/70 01/09/25 15:57 Pulse Ox 99 01/09/25 15:57 Oxygen Delivery Method Room Air 01/09/25 15:57 BMI result Body Mass Index 28.0 Assessment & Plan Assessment & Plan (1) URI with cough and congestion: Code(s): J06.9 - Acute upper respiratory infection, unspecified Plan Most likely URI vs covid vs flu vs RSV vs viral illness plan - A respiratory panel will be conducted to test for COVID-19, influenza, and RSV. - Medications for congestion and cough will be sent to the pharmacy. - Symptomatic treatment with Tylenol and Motrin is recommended. - Monitor for fever and ensure adequate fluid intake. - will call her with the results - follow up with PCP Orders: Orders Resp Pathogen Panel - [facility] Today J06.9 - Acute upper respiratory infection, unspecified Medications: New cetirizine-pseudoephedrine 5-120 mg ER 1 tab PO BID 14 tabs 0RF 7 days benzonatate 100 mg PO bid-tid PRN 21 caps 0RF Cough 7 days Coding Level of Care Code Est Pt Level 3 (95286) Diagnoses URI with cough and congestion J06.9
--- OUTSIDE RECORDS SUMMARY | 2025-01-09 18:56 | XMS_ITS | Encounter Summary ---
Author Organization [employer] Address [address] [place] [address] [address] [place] [address] Care Team Providers Care Plumbing Hardware Assembler Name Role Phone Ольга Koo MD Primary Care Provider [phone] Encounter Details Date Type Department Care Team ([facility] Contact Info) Description 10/23/2022 Abstract [facility] [address] [place] [phone] Ольга Koo MD [address] [place], [place] [phone] Social History Tobacco Use Types Packs/Day Years [...] Upcoming Encounters Date Type Department Care Team ([facility] Contact Info) Description 01/19/2025 4:00 PM EDT Office Visit [facility] [address] [place] [address] Ольга Koo MD [address] [place] [address] documented as of this encounter Visit Diagnoses Not on filedocumented in this encounter Additional Health Concerns Assessment Noted Time PHQ-9 Depression Total Score: 0 07/04/19 23 3:38 PM EST documented as of this encounter Care Teams Plumbing Hardware Assembler Relationship Specialty Start Date End Date Ольга Koo MD [address] [place] [address] PCP - General Family Medicine 04/08/22 documented as of this encounter
--- OUTSIDE RECORDS SUMMARY | 2025-01-09 18:56 | XMS_ITS | Encounter Summary ---
Author Organization [employer] Address [address] [facility] [address] [place] [address] Care Team Providers Care Medical Editor Name Role Phone Ольга Koo MD Primary Care Provider [phone] Encounter Details Date Type Department Care Team (Late st Contact Info) Description 03/21/2023 Orders Only [facility] [address] [place] [address] Ольга Koo MD [address] [place] [address] Hypercalcemia (Primary Dx) Social History Tobacco Use Types Packs/Day Years Used Date Smoking Tobacco: Never Passive Smoke Exposure: Never Smokeless Tobacco: Never Alcohol Use Standard Drinks/Week Comments Never 0 (1 standard drink = 0.6 oz pur e alcohol) Depression Answer Date Recorded Patient Health Questionnaire-9 Score 0 07/03/2022 Housing Stability Answer Date Recorded What is your housing situation today? I have chasidyoliva hernandez 02/12/[address] you li ve. Do you have problems with any of the following? None of the above 02/12/2023 Food Insecurity Answer Date Recorded Within the past 12 months, y ou worried that your food would run out before you got money to buy more: Never True 02/12/2023 Within the past 12 months,th e food you bought just didn't last and you didn't have enough money to get more: Never True Transportation Answer Date Recorded In the past 12 months, has l ack of transportation kept you from medical appts, meetings, work or from getting things needed for daily living? Yes, it has kept me from medical appointments or getting medications. 01/31/2023 Utilities Answer Date Recorded In the past 12 months, has t he electric, gas, oil or water company threatened to shut off services in your home? No 02/12/2023 Depression Answer Date Recorded Patient Health Questionnaire-2 [...] Care Team (Late st Contact Info) Description 01/19/2025 4:00 PM EDT Office Visit [facility] [address] [place], [place] [phone] Ольга Koo MD [address] [place] [address] documented as of this encounter Procedures Procedure Name Priority Date/Time Associated Diagnosis Comments BASIC METABOLIC PANEL Routine 03/29/2023 3:22 PM EST Hypercalcemia documented in this encounter Results * Basic Metabolic Panel (03/29/2023 3:22 PM EST) Sodium 140 135 - 145 mmol/L [facility] Potassium 4.0 3.3 - 5.1 mmol/L [facility] Chloride 105 96 - 108 mmol/L [facility] Carbon Dioxide 27 22 - 29 mmol/L [facility] Anion Gap 12 12 - 20 [facility] Urea Nitrogen (BUN) 12 9 - 16 mg/dL [facility] Creatinine, Serum 0.75 0.5 - 1.4 mg/dL [facility] Estimated Glomerular Filt Rate >60 [facility] Comment:NOTE: For -Am erican individuals, multiply the result by 1.210.Chronic Kidney Disease: Estimated GFR < 60 mL/min/1.84u8Nfyhnt Kidney Disease: Estimated GFR < 15 mL/min/1.73m2 Glucose 114 60 - 115 mg/dL [facility] Calcium 10.2 8.4 - 10.2 mg/dL [facility] Blood Venous blood specimen / Unknown 03/29/2023 3:22 PM EST 03/29/2023 5:26 PM EST us Ольга Koo MD LAB BLOOD ORDERABLES Final Res ult [facility] [address] [place] [address] [phone] documented in this encounter Visit Diagnoses Diagnosis Hypercalcemia- Primary documented in this encounter Additional Health Concerns Assessment Noted Time PHQ-9 Depression Total Score: 0 07/04/19 23 3:38 PM EST documented as of this encounter Care Teams Medical Editor Relationship Specialty Start Date End Date Ольга Koo MD [address] [place] [address] PCP - General Family Medicine 04/08/22 documented as of this encounter
--- OUTSIDE RECORDS SUMMARY | 2025-01-09 18:56 | XMS_ITS | Clinical Summary ---
Author Organization [employer] Address [address] [place] [address] [address] [place] [address] Care Team Providers Care Life Management Teacher Name Role Phone Ольга Koo MD Primary Care Provider Allergies No known active allergies Medications fluticasone (Flonase) 50 MCG/ACT nasal spray Administer 2 sprays into affected nostril(s) 1 (one) time each day. 2 Active loratadine (Claritin) 10 MG tablet Take 1 tablet by mouth 1 (one) time each day. 2 Active acetaminophen (Tylenol 8 Hour) 650 MG ER tablet Take 1 tablet by mouth every 8 (eight) hours. 2 Active Blood Pressure kit Check BP once a week Active ondansetron ODT (Zofran-ODT) 8 MG disintegrating tablet Take 8 mg by mouth every 8 (eight) hours if needed. 2 Active Skin Protectants, Misc. (Basis Facial Moisturizer) creamIndications:D ry skin APPLY TOPICALLY IF NEEDED FOR WOUND CARE.. NOT COVERED 99 g 3 3 Active cholecalciferol (Vitamin D-3) 50 MCG (1999 UT) capsule TAKE 1 CAPSULE BY MOUTH EVERY DAY 90 capsule 3 3 Active letrozole (Femara) 2.5 MG chemo tablet Take 2.5 mg by mouth in the morning. 3 Active lisinopril 5 MG tablet TAKE 1 TABLET BY MOUTH EVERY DAY 90 tablet 3 4 Active Active Problems Problem Noted Date Diagnosed Date Fatty liver 04/20/2024 Assessment & Plan (04/20/2024 6:29 AM EST): Dx on US 10/2023 Will calculate Fib4 score to assess for level of fibrosis Weight loss as mainstay of treatment Swelling of right parotid gland 06/25/2023 Assessment & Plan (06/25/2023 4:35 PM EST): Amoxicillin 875mg BID x 7 days Lemon/peppermint candy to aid in saliva production Dry skin 07/06/2022 Assessment & Plan (07/06/2022 9:02 AM EDT): Side effect of chemo To start Eucerin liberally to all affected areas multiple times a day Invasive ductal carcinoma of left breast 022 Assessment & Plan (04/20/2024 6:30 AM EST): Going to [facility] to celebrate normal mammogram 10/15/23 Mood support/regulation, diet, and daily exercise in place We reviewed how those decrease her risk of reoccurance s/p chemo, radiation, lumpectomy On Letrozole for aromatase inhibition Sees Dr Wu at [facility] for oncology care Handicap placard signed and obtained due to fatigue with walking long-distances Assessment & Plan (11/04/2023 10:10 AM EDT): Going to [facility] to celebrate normal mammogram 10/15/23 Mood support/regulation, diet, and daily exercise in place We reviewed how those decrease her risk of reoccurance s/p chemo, radiation, lumpectomy On Letrozole for aromatase inhibition Sees Dr Wu at [facility] for oncology care Handicap placard signed and obtained due to fatigue with walking long-distances Assessment & Plan (06/25/2023 4:37 PM EST): Mood support/regulation, diet, and daily exercise in place We reviewed how those decrease her risk of reoccurance s/p chemo, radiation, lumpectomy On Letrozole for aromatase inhibition Sees Dr Wu at [facility] for oncology care Handicap placard form filled out for mother, due to fatigue with walking long distances Assessment & Plan (02/16/2023 9:06 AM EDT): Mood support/regulation, diet, and daily exercise in place We reviewed how those decrease her risk of reoccurance s/p chemo, radiation, lumpectomy On Letrozole for aromatase inhibition Sees Dr Wu at [facility] for oncology care Assessment & Plan (10/10/2022 11:04 AM EDT): Mood, diet, and daily exercise in place We reviewed how those decrease her risk of reoccurance s/p chemo, radiation, lumpectomy Biopsy scheduled for next week due to abnl mammogram findings Assessment & Plan (07/06/2022 9:01 AM EDT): Mood, diet, and daily exercise in place We reviewed how those decrease her risk of reoccurance Finished chemo, about to start radiation at [facility] Reviewed precautions for virus/getting sick while traveling F/u in 3 months Assessment & Plan (04/09/2022 1:51 PM EST): Mood, diet, and daily exercise in place We reviewed how those decrease her risk of reoccurance She is tolerating chemo well Reviewed precautions for virus/getting sick over the holidays F/u in 3 months Overweight (BMI 25.0-29.9) 03/11/2022 Vitamin D deficiency 05/04/2018 Assessment & Plan (04/20/2024 6:30 AM EST): Continue vit D supplement 1000 international units daily Essential hypertension 07/29/2016 Assessment & Plan (04/20/2024 6:27 AM EST): At goal <130/80 Continue Lisinopril 5mg daily F/u in 4- 6months Check cholesterol at that time, as AI can raise cholesterol Assessment & Plan (11/04/2023 10:09 AM EDT): At goal <130/80 Continue Lisinopril 5mg daily F/u in 4- 6months Check cholesterol at that time, as AI can raise cholesterol Assessment & Plan (02/16/2023 9:07 AM EDT): At goal <130/80 Continue current medications F/u in 4 months Check cholesterol at that time, as AI can raise cholesterol Assessment & Plan (10/10/2022 11:04 AM EDT): At goal <130/80 Continue current medications F/u in 3 months Assessment & Plan (07/06/2022 9:00 AM EDT): At goal <130/80 Continue current medications F/u in 3 months Assessment & Plan (04/09/2022 1:52 PM EST): At goal <130/80 Continue current medications F/u in 3 months Cognitive developmental delay 03/18/2015 Assessment & Plan (07/06/2022 9:00 AM EDT): Lives with mother Encounters Date Type Department Care Team Description 10/11/2024 Orders Only [facility] External Provider, [facility] from Last 3 Months Immunizations Immunization Administration Dates Next Due Influenza Injectable Quadriv alant Preservative Free IIV4 MDCK 01/24/2022,01/25/2021,05/26/2019 Influenza injectable quadriv alent IIV4 with preservative 01/27/2018,03/29/2017,03/24/2016,2014 Influenza injectable quadriv alent preservative free 02/01/2023,01/27/2020 Influenza, IIV3, injectable 02/26/2014 Moderna Covid-19 Vaccine 12+ 04/25/2021,08/06/19 21,07/08/2020 Pfizer Covid-19 Vaccine 12+ 04/25/2021 Tdap 02/26/2014 Social History Tobacco Use Types Packs/Day Years Used Date Smoking Tobacco: Never Passive Smoke Exposure: Never Smokeless Tobacco: Never Tobacco Cessation:Counseling Given: Not Answered Alcohol Use Standard Drinks/Week Comments Never 0 (1 standard drink = 0.6 oz pur e alcohol) Depression Answer Date Recorded Patient Health Questionnaire-9 Score 0 07/03/2022 Housing Stability Answer Date Recorded What is your housing situation today? I have chasidy sing 04/18/[address] you li [...] not to disclose 2021 10:16 AM EDT Last Filed Vital Signs Vital Sign Reading Time Taken Comments Blood Pressure 124/77 04/18/2024 11:09 AM EST Pulse 97 04/18/2024 11:09 AM EST Temperature 36 C (96.8 F) 04/18/2024 11:09 AM EST Respiratory Rate 18 04/18/2024 11:09 AM EST Oxygen Saturation 98% 02/12/2023 3:59 PM EDT Inhaled Oxygen Concentration - - Weight 73.9 kg (163 lb) 04/18/2024 11:09 AM EST Height 165.1 cm (5' 5 ) 04/18/2024 11:09 AM EST Body Mass Index 27.12 04/18/2024 11:09 AM EST Plan of Treatment Upcoming Encounters Date Type Department Care Team (Late st Contact Info) Description 01/19/2025 4:00 PM EDT Office Visit [facility] [address] [place] [address] Ольга Koo MD [address] [place] [address] Health Maintenance Due Date Last Done Comments CT Colonography 1979 Colonoscopy 1979 Colorectal Cancer Screening 1979 FIT DNA/Cologuard 1979 FIT 1979 FOBT 1979 Sigmoidoscopy 1979 Disability Screening 1979 Alcohol/Substance Use Screening 1991 Family Planning (PISQ) 09/30/1994 HPV Vaccines (1 - 3-dose series) 09/30/1994 Hepatitis A Vaccines (1 of 2 - Risk 2-dose series) 09/30/1998 Hepatitis B Vaccines (1 of 3 - 19+ 3-dose series) 09/30/1998 Pap Smear 09/30/2000 Cervical Cancer Screening 09/30/2009 HPV/Cotest 09/30/2009 DTaP/Tdap/Td Vaccines (2 - Td or Tdap) 02/27/2024 02/26/2014 Lipid Panel 10/10/2024 10/11/2019 COVID-19 Vaccine ( season) 2024 04/25/2021, 04/25/2021, 08/05/2020, Additional history exists Influenza Vaccine (#1) 2024 , 02/01/2023, 01/24/2022, Additional history exists Depression Screening 04/18/2025 04/18/2024, 07/04/19 23 SDOH Screening 04/18/2025 04/18/2024 Tobacco Screening 04/18/2025 04/18/2024 Mammogram 10/11/2025 10/11/2024, 09/25, 04/30/2023, Additional history exists Zoster Vaccines (1 of 2) 09/30/2029 RSV Patients and Patients Aged 60 years or older (1 - 1-dose 75+ series) 09/30/2054 HIV Screening Completed 10/11/2019 Hepatitis C Screening Completed 10/11/2019 HIB Vaccines Aged Out No longer eligi ble based on patient's age to complete this topic IPV Vaccines Aged Out No longer eligi ble based on patient's age to complete this topic Meningococcal B Vaccine Aged Out No l onger eligible based on patient's age to complete this topic Meningococcal Vaccine Aged Out No cruz robert eligible based on patient's age to complete this topic Pneumococcal Vaccine: Pediatrics (0 to 5 Years) and At-Risk Patients (6 to 49) Years Aged Out No longer eligible based on patient's age to complete this topic RSV under 20 months Aged Out No longe r eligible based on patient's age to complete this topic Rotavirus Vaccines Aged Out No longer eligible based on patient's age to complete this topic Procedures Procedure Name Priority Date/Time Associated Diagnosis Comments BI MAMMOGRAM DIAGNOSTIC TOMOSYNTHESIS BILATERAL Routine 10/11/2024 11:45 AM EDT ZZZ HISTORICAL HEPATITIS C AB W/REFL TO HCV RNA, QN, PCR Routine 10/11/2019 11:31 AM EDT HIV 1/2 ANTIGEN/ANTIBODY, FOURTH GENERATION W/RFL Routine 10/11/2019 11:31 AM EDT LIPID PANEL, STANDARD Routine 10/11/2019 11:31 AM EDT from Last 3 Months or Most Recently Relevant to Health Maintenance Results * BI Mammogram Diagnostic Tomosynthesis Bilateral (10/11/2024 11:45 AM EDT) Anatomical Region Laterality Modality Breast Bilateral Mammography 10/11/2024 11:4 5 AM EDT Narrative 10/11/2024 12:35 PM EDT [facility] [address] [place] [address] Mammography Report Signed Patient: Kiki Muniz MR#: [id number] : 1980 Acct:[id number] Age/Sex: 44 / F ADM Date: 10/11/24 Loc: [facility] Attending Dr: Brian Gandhi MD Ordering Physician: Montana Hanley MD Results: 2Ben ign Findings Date of Service: 10/11/24 Follow Up: 1 Year From Orig inal Mammogram Procedure(s): MM tomosynthesis diagnostic BI Accession Number(s): [id number] cc: Ольга Koo; Montana Hanley MD EXAMINATION: [...] Kiah Ramos DO 10/11/2024 12:32 PM EDT Dictated By: Kiah Ramos DO Signed By: <Electronically signed by Kiah Ramos DO in OV> 10/11/24 1232 DD/ 1145 TD/TT: 10/11/24 1220 Acid Pump Operator: Procedure Note Donotuseinterpreter, Image - 10/11/2024 [facility] [address] [place] [address] [place] [address] Mammography Report Signed Patient: Kiki MunizMR#: [id number] : 1980Acct:[id number] Age/Sex: 44 / FADM Date: 10/11/24 Loc: HO.MAMMO Attending Dr: Brian Gandhi MD Ordering Physician: Montana Hanley MDResults: 2Ben ign Findings Date of Service: 10/11/24Follow Up: 1 Year From Orig inal Mammogram Procedure(s): MM tomosynthesis diagnostic BI Accession Number(s): [id number] cc: Ольга Koo; Montana Hanley MD EXAMINATION: [...] Kiah Ramos DO 10/11/2024 12:32 PM EDT Dictated By: Kiah Ramos DO Signed By: <Electronically signed by Kiah Ramos DO in OV> 10/11/24 1232 DD/ 1145 TD/TT: 10/11/24 1220 Acid Pump Operator: [facility] External Provider IMG BI PROCEDURES Final Result * HEPATITIS C AB W/REFL TO HCV RNA, QN, PCR (10/11/2019 11:31 AM EDT) HEPATITIS C ANTIBODY NON-REACT SULEIMAN NON-REACT SULEIMAN [facility] INDEX 0.04 <1.00 [facility] Comment: HCV antibody was non-reactive. There is no laboratory evidence of HCV infection. In most cases, no further action is required. However, if recent HCV exposure is suspected, a test for HCV RNA (test code 22130) is suggested. For additional information please refer to http://education.questdiagnostics.com/faq/DFF53k7 (This link is being provided for informational/ educational purposes only.) HEPATITIS C ANTIBODY NON-REACT SULEIMAN NON-REACT SULEIMAN [facility] INDEX 0.04 <1.00 [facility] Comment: HCV antibody was non-reactive. There is no laboratory evidence of HCV infection. In most cases, no further action is required. However, if recent HCV exposure is suspected, a test for HCV RNA (test code 80608) is suggested. For additional information please refer to http://Oncoscope/faq/JFN76c8 (This link is being provided for informational/ educational purposes only.) HEPATITIS C ANTIBODY NON-REACT SULEIMAN NON-REACT SULEIMAN [facility] INDEX 0.04 <1.00 [facility] Comment: HCV antibody was non-reactive. There is no laboratory evidence of HCV infection. In most cases, no further action is required. However, if recent HCV exposure is suspected, a test for HCV RNA (test code 89809) is suggested. For additional information please refer to http://Oncoscope/faq/QCW20j4 (This link is being provided for informational/ educational purposes only.) 10/11/2019 11:3 1 AM EDT Bethany Camacho DO HISTORICAL/NON ORDERABLE LAB S Final Result [facility] [address] * HIV 1/2 ANTIGEN/ANTIBODY,FOURTH GENERATION W/RFL (10/11/2019 11:31 AM EDT) HIV-1/2 ANTIGEN AND ANTIBODIES, 4TH GENERATION W/ REFLEX NON-REACT SULEIMAN NON-REACT SULEIMAN [facility] Comment: HIV-1 antigen and HIV-1/HIV-2 antibodies were not detected. There is no laboratory evidence of HIV infection. PLEASE NOTE: This information has been disclosed to you from records whose confidentiality may be protected by state law. If your state requires such protection, then the state law prohibits you from making any further disclosure of the information without the specific written consent of the person to whom it pertains, or as otherwise permitted by law. A general authorization for the release of medical or other information is NOT sufficient for this purpose. For additional information please refer to http://WorldMate.CloSys/faq/OSB735 (This link is being provided for informational/ educational purposes only.) The performance of this assay has not been clinically validated in patients less than 2 years old. HIV-1/2 ANTIGEN AND ANTIBODIES, 4TH GENERATION W/ REFLEX NON-REACT SULEIMAN NON-REACT SULEIMAN [facility] Comment: HIV-1 antigen and HIV-1/HIV-2 antibodies were not detected. There is no laboratory evidence of HIV infection. PLEASE NOTE: This information has been disclosed to you from records whose confidentiality may be protected by state law. If your state requires such protection, then the state law prohibits you from making any further disclosure of the information without the specific written consent of the person to whom it pertains, or as otherwise permitted by law. A general authorization for the release of medical or other information is NOT sufficient for this purpose. For additional information please refer to http://Oncoscope/faq/XEJ102 (This link is being provided for informational/ educational purposes only.) The performance of this assay has not been clinically validated in patients less than 2 years old. HIV-1/2 ANTIGEN AND ANTIBODIES, 4TH GENERATION W/ REFLEX NON-REACT SULEIMAN NON-REACT [facility] Comment: HIV-1 antigen and HIV-1/HIV-2 antibodies were not detected. There is no laboratory evidence of HIV infection. PLEASE NOTE: This information has been disclosed to you from records whose confidentiality may be protected by state law. If your state requires such protection, then the state law prohibits you from making any further disclosure of the information without the specific written consent of the person to whom it pertains, or as otherwise permitted by law. A general authorization for the release of medical or other information is NOT sufficient for this purpose. For additional information please refer to http://WorldMate.CloSys/faq/POT684 (This link is being provided for informational/ educational purposes only.) The performance of this assay has not been clinically validated in patients less than 2 years old. HIV-1/2 ANTIGEN AND ANTIBODIES, 4TH GENERATION W/ REFLEX NON-REACT SULEIMAN NON-REACT [facility] Comment: HIV-1 antigen and HIV-1/HIV-2 antibodies were not detected. There is no laboratory evidence of HIV infection. PLEASE NOTE: This information has been disclosed to you from records whose confidentiality may be protected by state law. If your state requires such protection, then the state law prohibits you from making any further disclosure of the information without the specific written consent of the person to whom it pertains, or as otherwise permitted by law. A general authorization for the release of medical or other information is NOT sufficient for this purpose. For additional information please refer to http://education.CloSys/faq/BFX029 (This link is being provided for informational/ educational purposes only.) The performance of this assay has not been clinically validated in patients less than 2 years old. 10/11/2019 11:3 1 AM EDT us Bethany Camacho DO LAB BLOOD ORDERABLES Final R esult [facility] [address] * (ABNORMAL) LIPID PANEL, STANDARD (10/11/2019 11:31 AM EDT) Cholesterol, Total 198 <200 mg/dL [facility] Triglycerides 112 <150 mg/dL [facility] Triglycerides 112 <150 mg/dL [facility] Cholesterol, Total 198 <200 mg/dL [facility] Chol/HDLC Ratio 4.6 <5.0 (calc) [facility] Cholesterol, Total 198 <200 mg/dL [facility] HDL Cholesterol 43(L) > OR = 50 mg/dL [facility] Chol/HDLC Ratio 4.6 <5.0 (calc) [facility] Non-HDL Cholesterol 155(H) <130 mg/dL (calc) [facility] Comment: For patients with diabetes plus 1 major ASCVD risk factor, treating to a non-HDL-C goal of <100 mg/dL (LDL-C of <70 mg/dL) is considered a therapeutic option. LDL Cholesterol 133(H) mg/dL (calc) [facility] Comment: Reference range: <100 Desirable range <100 mg/dL for primary prevention; <70 mg/dL for patients with CHD or diabetic patients with > or = 2 CHD risk factors. LDL-C is now calculated using the Jc-Mary calculation, which is a validated novel method providing better accuracy than the Friedewald equation in the estimation of LDL-C. Jc SS et al. PADMA. 2013;310(19): 4722-6300 (http://education.MoPals.RealPage/faq/ONJ910) Triglycerides 112 <150 mg/dL [facility] LDL Cholesterol 133(H) mg/dL (calc) [facility] Comment: Reference range: <100 Desirable range <100 mg/dL for primary prevention; <70 mg/dL for patients with CHD or diabetic patients with > or = 2 CHD risk factors. LDL-C is now calculated using the Jc-Mary calculation, which is a validated novel method providing better accuracy than the Friedewald equation in the estimation of LDL-C. Jc SS et al. PADMA. 2013;310(19): 9576-6522 (http://education.MoPals.RealPage/faq/EIU926) Cholesterol, Total 198 <200 mg/dL [facility] Chol/HDLC Ratio 4.6 <5.0 (calc) [facility] HDL Cholesterol 43(L) > OR = 50 mg/dL [facility] LDL Cholesterol 133(H) mg/dL (calc) [facility] Comment: Reference range: <100 Desirable range <100 mg/dL for primary prevention; <70 mg/dL for patients with CHD or diabetic patients with > or = 2 CHD risk factors. LDL-C is now calculated using the Jc-Mary calculation, which is a validated novel method providing better accuracy than the Friedewald equation in the estimation of LDL-C. Jc SS et al. PADMA. 2013;310(19): 5269-9740 (http://education.MoPals.RealPage/faq/ALR458) Triglycerides 112 <150 mg/dL [facility] Chol/HDLC Ratio 4.6 <5.0 (calc) [facility] Non-HDL Cholesterol 155(H) <130 mg/dL (calc) [facility] Comment: For patients with diabetes plus 1 major ASCVD risk factor, treating to a non-HDL-C goal of <100 mg/dL (LDL-C of <70 mg/dL) is considered a therapeutic option. Cholesterol, Total 198 <200 mg/dL [facility] HDL Cholesterol 43(L) > OR = 50 mg/dL [facility] LDL Cholesterol 133(H) mg/dL (calc) [facility] Comment: Reference range: <100 Desirable range <100 mg/dL for primary prevention; <70 mg/dL for patients with CHD or diabetic patients with > or = 2 CHD risk factors. LDL-C is now calculated using the Jc-Mary calculation, which is a validated novel method providing better accuracy than the Friedewald equation in the estimation of LDL-C. Jc OLMSTEAD et al. PADMA. 2013;310(19): 6371-4471 (http://WorldMate.[place] EXTENDED STAYS/faq/ADA177) Chol/HDLC Ratio 4.6 <5.0 (calc) [facility] HDL Cholesterol 43(L) > OR = 50 mg/dL [facility] Non-HDL Cholesterol 155(H) <130 mg/dL (calc) [facility] Comment: For patients with diabetes plus 1 major ASCVD risk factor, treating to a non-HDL-C goal of <100 mg/dL (LDL-C of <70 mg/dL) is considered a therapeutic option. HDL Cholesterol 43(L) > OR = 50 mg/dL [facility] Triglycerides 112 <150 mg/dL [facility] Non-HDL Cholesterol 155(H) <130 mg/dL (calc) [facility] Comment: For patients with diabetes plus 1 major ASCVD risk factor, treating to a non-HDL-C goal of <100 mg/dL (LDL-C of <70 mg/dL) is considered a therapeutic option. LDL Cholesterol 133(H) mg/dL (calc) [facility] Comment: Reference range: <100 Desirable range <100 mg/dL for primary prevention; <70 mg/dL for patients with CHD or diabetic patients with > or = 2 CHD risk factors. LDL-C is now calculated using the Jc-Mary calculation, which is a validated novel method providing better accuracy than the Friedewald equation in the estimation of LDL-C. Jc OLMSTEAD et al. PADMA. 2013;310(19): 5105-3560 (http://WorldMate.[place] EXTENDED STAYS/faq/LOR348) Non-HDL Cholesterol 155(H) <130 mg/dL (calc) [facility] Comment: For patients with diabetes plus 1 major ASCVD risk factor, treating to a non-HDL-C goal of <100 mg/dL (LDL-C of <70 mg/dL) is considered a therapeutic option. 10/11/2019 11:3 1 AM EDT us Bethany Janice DO LAB BLOOD ORDERABLES Final R esult [facility] [address] [place] [address], from Last 3 Months or Most Recently Relevant to Health Maintenance Insurance [employer] Care Teams Life Management Teacher Relationship Specialty Start Date End Date Ольга Koo MD [address] [place] [address] PCP - General Family Medicine 04/08/22
--- OUTSIDE RECORDS SUMMARY | 2025-01-09 18:56 | XMS_ITS | Clinical Summary ---
Author Organization [facility] Address [address] [place] [address] Phone Care Team Providers Care Steel Buffer Name Role Phone Ольга Koo MD Primary Care Provider Allergies No known active allergies Medications amoxicillin [...] mouth 1 (one) time each day. Active Encounters Date Type Department Care Team Description 11/28/2024 3:30 PM EDT Office Visit Orthopedic Surgery [facility] [address] [address] Keshawn Tierney, DPM Ingrowing nail (Primary Dx) from Last 3 Months Social History Tobacco Use Types Packs/Day Years [...] Care Team (Late st Contact Info) Description 03/06/2025 3:15 PM EST Office Visit Orthopedic Surgery - [place] [address] [address] Keshawn Tierney, DPM [address] [address] Health Maintenance Due Date Last Done Comments [...] 05/21/2023 Social Influencers of Health Screening 05/21/2023 DTaP,Tdap,and Td Vaccines (2 - Td or Tdap) 02/27/2024 02/26/2014 Depression Screening 04/26/2024 Hypertension/CHF/CAD Annual BMP Blood Test 05/24/2024 Cholesterol Screening (Lipid Panel) 10/10/2024 10/11/2019 COVID-19 Vaccine ( season) 2024 04/25/2021, 08/05/2020, 07/08/2020 Influenza Vaccine (#1) 2024 4, 02/01/2023, 01/24/2022, [...] topic Insurance MEDICAID - [place] Care Teams Steel Buffer Relationship Specialty Start Date End Date Ольга Koo MD [address] [place] [address] PCP - General 06/29/23
--- OUTSIDE RECORDS SUMMARY | 2025-01-09 18:56 | XMS_ITS | Encounter Summary ---
Author Organization [employer] Address [address] [place] [address] 7 [place] [address] Care Team Providers Care Zinc Plate Grainer Name Role Phone Ольга Koo MD Primary Care Provider [phone] Encounter Details Date Type Department Care Team ([facility] Contact Info) Description 10/23/2022 Abstract [facility] [address] [place] [phone] Elizabeth Mcbride, RN [address] [place] [address] Social History Tobacco Use Types Packs/Day Years [...] Upcoming Encounters Date Type Department Care Team ([facility] Contact Info) Description 01/19/2025 4:00 PM EDT Office Visit [facility] [address] [place] [address] [phone] Ольга Koo MD [address] [place] [address] documented as of this encounter Visit Diagnoses Not on filedocumented in this encounter Additional Health Concerns Assessment Noted Time PHQ-9 Depression Total Score: 0 07/04/19 23 3:38 PM EST documented as of this encounter Care Teams Zinc Plate Grainer Relationship Specialty Start Date End Date Ольга Koo MD [address] [place] [address] PCP - General Family Medicine 04/08/22 documented as of this encounter
== END 2025-01-09 16:10 | disposition home or self-care (01) ==
PROVIDERS: PCP General Practice; Visit Provider Physician Assistant Medical
DX: J06.9 Acute upper respiratory infection, unspecified (principal)